=== PATIENT | male | born 1945 | race Caucasian/White ===

== ENCOUNTER 2020-01-21 08:58 | Outpatient (REF) | payer MEDICARE, SELFPAY | END 2020-01-21 08:59 | disposition home or self-care (01) | LOC: HO.HMGCLDS 08:58 | PROVIDERS: PCP Internal Medicine; Visit Provider Internal Medicine | DX: Z20.828 Contact with and (suspected) exposure to other viral communicable diseases (principal) | CPT/HCPCS: C9803; U0003 ==

== ENCOUNTER 2020-09-02 06:42 | Outpatient (REF) | payer MEDICARE, SELFPAY ==
[2020-09-02 12:02] LABS: Hematocrit 46.8 % (42-52); Hemoglobin 15.5 g/dl (14.0-18.0); Mean Corpuscular HGB Conc 33.1 g/dl (31.0-36.0); Mean Corpuscular Hemoglobin 29.9 pg (27.0-33.0); Mean Corpuscular Volume 90.2 fL (80-98); Mean Platelet Volume 8.9 fL (9.4-12.4); Platelet Count 224 X10*3/uL (160-400); Red Blood Count 5.19 X10*6/uL (4.60-5.80); Red Cell Distribution Width 13.2 % (11.0-16.0); White Blood Count 7.7 X10*3/uL (4.8-10.8)
[2020-09-02 12:13] LABS: Alanine Aminotransferase 14 U/L (0-40); Albumin Level 4.2 g/dL (3.5-5.0); Alkaline Phosphatase 73 U/L (39-117); Anion Gap 12 (12-20); Aspartate Amino Transferase 12 U/L (5-37); Blood Urea Nitrogen 12 mg/dL (9-16); Calcium 8.9 mg/dL (8.4-10.2); Carbon Dioxide 24 mmol/L (22-29); Chloride 110 mmol/L (96-108); Cholesterol 151 mg/dL; Estimated Glomerular Filt Rate > 60; Glucose Fasting 94 mg/dL (60-99); HDL Cholesterol 44 mg/dL; LDL Cholesterol Calculated 93 mg/dl; Potassium 4.4 mmol/L (3.3-5.1); Sodium 142 mmol/L (135-145); Triglycerides 70 mg/dL
[2020-09-02 12:24] LABS: Prostate Specific Antigen Scr 0.49 ng/mL (<0.05-4.0)
== END 2020-09-02 06:43 | disposition home or self-care (01) ==
LOC: HO.HMGCLDS 06:42
PROVIDERS: PCP Internal Medicine; Visit Provider Internal Medicine
DX: R41.3 Other amnesia (principal); E78.5 Hyperlipidemia, unspecified
CPT/HCPCS: 36415; 80053; 80061; 84153; 85027

== ENCOUNTER 2021-08-16 06:45 | Outpatient (REF) | payer MEDICARE, SELFPAY ==
[2021-08-16 12:00] LABS: Hematocrit 48.1 % (42.0-52.0); Hemoglobin 15.9 g/dl (14.0-18.0); Mean Corpuscular HGB Conc 33.1 g/dl (31.0-36.0); Mean Corpuscular Hemoglobin 30.1 pg (27.0-33.0); Mean Corpuscular Volume 90.9 fL (80.0-98.0); Platelet Count 199 X10*3/uL (160-400); Red Blood Count 5.29 X10*6/uL (4.60-5.80); Red Cell Distribution Width 13.2 % (11.0-16.0); White Blood Count 7.9 X10*3/uL (4.8-10.8)
[2021-08-16 12:10] LABS: Alanine Aminotransferase 16 U/L (0-40); Albumin Level 4.1 g/dL (3.5-5.0); Alkaline Phosphatase 72 U/L (39-117); Anion Gap 13 (12-20); Aspartate Amino Transferase 12 U/L (5-37); Bilirubin Total 0.6 mg/dL (0.0-1.0); Blood Urea Nitrogen 15 mg/dL (9-16); Calcium 9.1 mg/dL (8.4-10.2); Carbon Dioxide 26 mmol/L (22-29); Chloride 107 mmol/L (96-108); Cholesterol 142 mg/dL; Estimated Glomerular Filt Rate > 60; Glucose Fasting 100 mg/dL (60-99); HDL Cholesterol 48 mg/dL; LDL Cholesterol Calculated 82 mg/dl; Potassium 4.5 mmol/L (3.3-5.1); Sodium 141 mmol/L (135-145); Total Protein 6.8 g/dL (6.5-8.0); Triglycerides 61 mg/dL
== END 2021-08-16 06:46 | disposition home or self-care (01) ==
LOC: HO.HMGCLDS 06:45
PROVIDERS: Visit Provider Internal Medicine
DX: Z12.5 Encounter for screening for malignant neoplasm of prostate (principal); R41.3 Other amnesia; N40.0 Benign prostatic hyperplasia without lower urinary tract symptoms; E78.5 Hyperlipidemia, unspecified
CPT/HCPCS: 36415; 80053; 80061; 84153; 85027

== ENCOUNTER 2022-03-31 10:28 | Outpatient (REF) | payer MEDICARE, SELFPAY ==
--- NOTE | ~2022-03-31 | US_ITS ---
EXAMINATION: US PELVIS LIMITED (BLADDER) CLINICAL INFORMATION: Benign prostatic hyperplasia without lower urinary tract symptoms. COMPARISON: None TECHNIQUE: Real-time imaging of the bladder. FINDINGS: BLADDER: Well distended and normal. Bilateral ureteral jets are demonstrated. Prevoid bladder volume is 219 mL. Postvoid bladder volume is 23 mL. OTHER: Prostate dimensions are 4.5 x 3.6 x 5.2 cm (volume 43.1 mL). US/US bladder IMPRESSION: 1. Unremarkable bilateral renal ultrasound examination. 2. There is prostatomegaly.
[2022-03-31 14:05] LABS: MANUAL DIFF FLAG NO
[2022-03-31 14:11] LABS: Basophils Percent Auto 0.4 % (0-2); Eosinophils Absolute Auto 0.2 X10*3/uL (0.0-0.4); Eosinophils Percent Auto 2.5 % (0-4); Hematocrit 46.9 % (42.0-52.0); Hemoglobin 15.6 g/dl (14.0-18.0); Imm Gran Abs Auto 0.03 X10*3/uL (0.00-0.03); Imm Gran Pct Auto 0.4 % (0.0-0.4); Lymphocytes Absolute Auto 2.1 X10*3/uL (1.2-4.9); Lymphocytes Percent Auto 26.4 % (20-40); Mean Corpuscular HGB Conc 33.3 g/dl (31.0-36.0); Mean Corpuscular Hemoglobin 29.5 pg (27.0-33.0); Mean Corpuscular Volume 88.8 fL (80.0-98.0); Mean Platelet Volume 8.9 fL (9.4-12.4); Monocytes Absolute Auto 0.6 X10*3/uL (0.1-1.2); Monocytes Percent Auto 7.4 % (2-11); Neutrophils Percent Auto 62.9 % (45-73); Platelet Count 201 X10*3/uL (160-400); Red Blood Count 5.28 X10*6/uL (4.60-5.80); Red Cell Distribution Width 13.2 % (11.0-16.0); White Blood Count 7.9 X10*3/uL (4.8-10.8)
[2022-03-31 14:53] LABS: Alanine Aminotransferase 16 U/L (0-40); Albumin Level 4.2 g/dL (3.5-5.0); Alkaline Phosphatase 72 U/L (39-117); Anion Gap 12 (12-20); Aspartate Amino Transferase 15 U/L (5-37); Blood Urea Nitrogen 12 mg/dL (9-16); Calcium 9.2 mg/dL (8.4-10.2); Carbon Dioxide 28 mmol/L (22-29); Chloride 106 mmol/L (96-108); Estimated Glomerular Filt Rate > 60; Glucose Random 103 mg/dL (60-115); Potassium 4.6 mmol/L (3.3-5.1); Sodium 141 mmol/L (135-145); Total Protein 6.9 g/dL (6.5-8.0)
== END 2022-03-31 10:29 | disposition home or self-care (01) ==
LOC: HO.HMGCX 10:28
PROVIDERS: Absent Provider Physician Assistant; PCP Internal Medicine; Visit Provider Internal Medicine
DX: N40.0 Benign prostatic hyperplasia without lower urinary tract symptoms (principal); R42 Dizziness and giddiness
CPT/HCPCS: 36415; 76857; 80053; 85025

== ENCOUNTER 2022-06-20 12:37 | Outpatient (REF) | payer MEDICARE, SELFPAY ==
[2022-06-20 13:40] LABS: Influenza A PCR NEGATIVE (Negative); Influenza B PCR NEGATIVE (Negative); Resp Syncy Virus RNA Qual PCR NEGATIVE (Negative); SARS COV2 PCR INHOUSE NEGATIVE (Negative)
== END 2022-06-20 12:38 | disposition home or self-care (01) ==
LOC: HO.LNP 12:37
PROVIDERS: Visit Provider Nurse Practitioner Family
DX: Z20.822 Contact with and (suspected) exposure to COVID-19 (principal); R09.89 Other specified symptoms and signs involving the circulatory and respiratory systems
CPT/HCPCS: 0241U

== ENCOUNTER 2022-07-12 08:26 | Emergency (ER) | payer MEDICARE, SELFPAY ==
--- NOTE | ~2022-07-12 | CT_ITS ---
EXAMINATION: CT HEAD WITHOUT CONTRAST CLINICAL INFORMATION: Dizziness COMPARISON: None available. TECHNIQUE: Contiguous axial imaging was performed from the skull base to vertex without intravenous administration of contrast. This CT examination was performed using dose optimization techniques as appropriate, variously including the following: *Automated exposure control *Adjustment of mA and/or kV according to patient size (this includes techniques or standardized protocols for targeted exams where dose is matched to indication/reason for exam; i.e. extremities or head) *Use of iterative reconstruction technique DLP: 731 mGy-cm FINDINGS: No intracranial hemorrhage is identified. No significant mass effect or midline structure shift is seen. No abnormal extra-axial fluid collection is noted. There is prominence of ventricles, sulci, and cisterns with some periventricular white matter low density consistent with microangiopathy with atrophic change. García-white metatarsal interface maintained. The visualized paranasal sinuses, mastoid air cells, and temporomandibular joints appear unremarkable. Pterygoid plates intact. CT/CT head/brain wo IV con IMPRESSION: No acute intracranial pathology. 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
[2022-07-12 08:34] VITALS: BP 120/60; PULSE 54; RESP 18; TEMP 36.1; O2SAT 99; BMI 35.6
--- NOTE | 2022-07-12 08:46 | ECG_ITS ---
Test Reason : DIZZINESS Blood Pressure : / mmHG Vent. Rate : 058 BPM Atrial Rate : 058 BPM P-R Int : 164 ms QRS Dur : 088 ms QT Int : 434 ms P-R-T Axes : 006 -16 016 degrees QTc Int : 426 ms Sinus bradycardia with Premature atrial complexes Low voltage QRS Nonspecific T wave abnormality Abnormal ECG When compared with ECG of 10-AUG-2006 11:44, Premature atrial complexes are now Present Referred By: Nikki Teague Electronically Signed By:SALEEM CLARK
--- NOTE | 2022-07-12 09:15 | ED_ITS ---
HPI - General Adult General Chief complaint: Dizziness Stated complaint: Vertigo Time Seen by Provider: 07/12/22 09:14 Source: patient and family () Mode of arrival: ambulatory Limitations: no limitations History of Present Illness HPI narrative: Patient is a 77 year old assigned male at with a history of vertigo, memory loss, and BPH presenting to the emergency department today with an episode of vertigo. Patient states that he is currently having a prolonged episode of vertigo and he is almost out of his antivert. Patient states that he previously had a PT do the maneuver to help with it before and that did make it go away for awhile. Patient denies any lightheadedness, abdominal pain, nausea, vomiting, fever, chills, blurry vision, double vision, loss of vision, chest pain, difficulty breathing, shortness of breath, back pain, night sweats, pain with urination, increased urinary frequency, increased urinary urgency, blood in his urine or stool, syncope or a near syncopal episode, recent trauma or falls, bowel incontinence, bladder incontinence, bowel retention, bladder retention, or any other complaints at this time. Onset (ago): week(s) Severity: mild Relieving factors: none Exacerbating factors: none Associated symptoms: denies other symptoms Treatments prior to arrival: none Related Data Home Medications Medication Instructions Recorded Confirmed flu vacc 2020-21(65yr ml IM 02/25/20 06/20/22 up)-MF59C(PF) 60 mcg(15 mcgx4)/0.5 mL IM syringe Previous Rx's Medication Instructions Recorded donepezil 10 mg tablet 10 mg PO BEDTIME #90 tabs 09/26/21 simvastatin 40 mg tablet 40 mg PO DAILY #90 tabs 03/03/22 meclizine 25 mg tablet 25 mg PO BID PRN dizziness #14 tabs 03/31/22 albuterol sulfate 90 mcg/actuation 2 puff inhalation Q4-6H PRN 06/20/22 aerosol inhaler shortness of breath or wheezing #6.7 grams benzonatate 100 mg capsule 100 mg PO TID PRN cough #20 caps 06/20/22 cetirizine 10 mg tablet 10 mg PO DAILY PRN allergy 06/20/22 symptoms #30 tabs doxycycline monohydrate 100 mg 100 mg PO BID 7 days #14 caps 06/20/22 capsule meclizine 25 mg tablet 25 mg PO BID PRN dizziness #30 tabs 07/12/22 Allergies Allergy/AdvReac Type Severity Reaction Status Date / Time No Known Allergies Allergy Verified 07/12/22 08:42 Review of Systems Constitutional: Constitutional: Reports no additional constitutional complaints, Denies headache(s) and Denies weakness Eyes: Eyes: Denies blurry vision, Denies change in vision and Denies loss of vision ENT: Reports vertigo, Reports dizziness and Denies headache(s) Cardiovascular: Cardiovascular: Denies chest pain and Denies dyspnea Respiratory: Respiratory: Denies dyspnea Gastrointestinal: Gastrointestinal: Denies abdominal pain Genitourinary: Genitourinary: Denies no additional male genitourinary complaints Musculoskeletal: Musculoskeletal: Denies no additional musculoskeletal complaints and Denies abnormal gait Neurologic: Denies Abnormal speech present, Denies abnormal gait, Reports vertigo, Reports dizziness, Denies headache(s), Denies lack of coordination, Denies loss of vision, Denies Sensory deficit (Neuro) and Denies weakness Psychiatric: Psychiatric: Reports no additional psychiatric complaints Endocrine: Endocrine: Reports no additional endocrine complaints Hematologic/Lymphatic: Hematologic/Lymphatic: Reports no additional hematologic/lymphatic complaints Allergic/Immunologic: Allergic/Immunologic: Reports no additional allergic/immunologic complaints PMFSH Past Medical History Attestation statement: The following information was validated with the patient. (all information validated with the patient's mother) Source: old records reviewed, obtained from family (patient's ) and nursing notes reviewed Medical History BPH (benign prostatic hyperplasia) Cataract Hyperlipidemia Memory loss Obesity Surgical History H/O colonoscopy Family History Family History Father HTN (hypertension) Mother No problems noted. Maternal Grandfather Cancer Maternal Grandmother Lung cancer Sister No problems noted. Son No problems noted. Daughter No problems noted. Daughter No problems noted. Daughter No problems noted. Social History Social History Housing: House Alcohol intake: current Alcohol intake frequency: a few times a week Patient Tobacco Use Status: Never used Tobacco e-Cigarette/Vaping Use: Never Used Second Hand Smoke Exposure: No Advance Directives: No Advance Directives Information Provided: Yes service: Yes Current occupational status: retired Cognitive needs: No Hearing needs: Yes Vision needs: Yes Physical Exam ED Vital Signs: Vital Signs - 24 hr 07/12/22 08:34 Temperature 96.9 F Pulse Rate 54 Respiratory Rate 18 Blood Pressure 120/60 Pulse Oximetry 99 Oxygen Delivery Method Room Air BMI result Body Mass Index 35.6 Const General: cooperative Nutritional Appearance: well nourished Orientation/consciousness: patient oriented x3 Limitations: no limitations HENMT Head: Yes normal to inspection and Yes atraumatic Ears: hearing grossly normal bilaterally and external ears normal General nose exam: Normal external nose present, no nasal discharge noted and no epistaxis Face and sinus: Yes normal facial exam, No abrasion and No laceration Mouth: Normal oral and palatal mucosa present, no drooling and no muffled voice Eyes General: appearance normal, both eyes and all related structures Periorbital: periorbital findings normal Eyelids: Yes eyelids normal Conjunctivae: conjunctivae normal Pupils: Equal, round and reactive pupils present EOM: EOMs intact bilaterally Neck Neck: Yes normal visual inspection, Yes full ROM and Yes no lymphadenopathy Chest Chest palpation & inspection: normal inspection of the chest Resp Effort & Inspection: normal respiratory effort and able to speak in complete sentences Auscultation: clear to auscultation bilaterally Cardio Rate: regular rate Rhythm: regular rhythm GI Inspection: Yes normal to inspection Palpation (GI): Soft to palpation, not firm and nontender Auscultation: normal bowel sounds Neuro General: patient oriented x3 Cranial nerves: Yes CN's II-XII intact bilaterally and Yes Equal, round and reactive pupils present Cognition (Neuro): normal cognition Speech: No Abnormal speech present Gait exam (Neuro): Normal gait present Motor exam (neuro): 5/5 motor strength present throughout Sensory Exam: No Sensory deficit (Neuro), Upper extremity sensory exam abnormal or Abnormal lower extremity sensory exam Coordination: [id number] test normal Extrem General: Yes normal to inspection, Yes full ROM and Yes capillary refill normal Psych Appearance: grossly normal Mental Status: mental status grossly normal Affect: normal affect Attitude: cooperative Thought process: Normal thought process present Thought content: Normal thought content present Insight: Good insight present (Psych) Medical Decision Making Medical Decision Making MDM Narrative: Patient is a 77 year old assigned male at with a history of memory loss, vertigo, and cataracts presenting to the emergency department today with a prolonged episode of vertigo. Patient's physical exam was unremarkable including normal gait, a normal neurological examination, and an NIH score of 0. Patient's blood work was unremarkable. Patient's urine showed no acute process. Patient's EKG was unremarkable. Patient's head CT showed no acute process. I explained my physical exam findings as well as all test results to the patient and the patient's . I answered all questions asked by the patient and the patient's . I stressed the importance of the patient taking his medication as prescribed. I stressed the importance of the patient following up with his primary care provider. I stressed the importance of the patient returning to the emergency department immediately if his symptoms were to worsen or if he were to develop any dizziness, shortness of breath, difficulty breathing, chest pain, blurry vision, loss of vision, nausea, vomiting, abdominal pain, fever, chills, back pain, or any other complaints. Patient and the patient's verbalized agreement and understanding with this treatment plan and discharge. Differential Diagnosis Differential Diagnoses: The differential diagnosis associated with the presentation includes vertigo Lab Data MDM Lab Attestation statement: I reviewed the patient's lab results. 07/12/22 09:52 07/12/22 09:52 Labs: Lab Results 07/12/22 07/12/22 07/12/22 Range/Units 09:49 09:52 09:52 WBC 6.9 (4.8-10.8) X10*3/uL RBC 5.08 (4.60-5.80) X10*6/uL Hgb 15.1 (14.0-18.0) g/dl Hct 45.0 (42.0-52.0) % MCV 88.6 (80.0-98.0) fL MCH 29.7 (27.0-33.0) pg MCHC 33.6 (31.0-36.0) g/dl RDW 13.2 (11.0-16.0) % Plt Count 168 (160-400) X10*3/uL MPV 8.5 L (9.4-12.4) fL Immature Gran % (Auto) 0.1 (0.0-0.4) % Neut % (Auto) 67.5 (45-73) % Lymph % (Auto) 22.9 (20-40) % [place] % (Auto) 6.3 (2-11) % Eos % (Auto) 2.9 (0-4) % Baso % (Auto) 0.3 (0-2) % Lymph # (Auto) 1.6 (1.2-4.9) X10*3/uL [place] # (Auto) 0.4 (0.1-1.2) X10*3/uL Eos # (Auto) 0.2 (0.0-0.4) X10*3/uL Baso # (Auto) 0.0 (0.0-0.2) X10*3/uL Abs Immat Gran (auto) 0.01 (0.00-0.03) X10*3/uL Absolute Neuts (auto) 4.6 (2.0-8.3) x10*3/uL Absolute Nucleated RBC 0.000 (0.0-0.012) X10*3/uL Nucleated RBC % (auto) 0.0 (0.0-0.2) /100WBC Sodium 141 (135-145) mmol/L Potassium 4.4 (3.3-5.1) mmol/L Chloride 110 H (96-108) mmol/L Carbon Dioxide 26 (22-29) mmol/L Anion Gap 9 L (12-20) BUN 11 (9-16) mg/dL Creatinine 0.97 (0.5-1.4) mg/dL Estim Creat Clear Calc 81.1 Estimated GFR > 60 Random Glucose 108 (60-115) mg/dL Calcium 8.9 (8.4-10.2) mg/dL Magnesium 2.1 (1.6-2.6) mg/dL Total Bilirubin 1.1 H (0.0-1.0) mg/dL AST 14 (5-37) U/L ALT 14 (0-40) U/L Alkaline Phosphatase 70 (39-117) U/L Troponin I High Sens (<3.5-35.0) ng/L Total Protein 6.3 L (6.5-8.0) g/dL Albumin 3.8 (3.5-5.0) g/dL Urine Color Urine Appearance Urine pH (5.0-9.0) Ur Specific [place] (1.005-1.025) Urine Protein (Neg-Trace) mg/dL Urine Glucose (UA) (Negative) mg/dL Urine Ketones (Negative) mg/dL Urine Blood (Negative) Urine Nitrite (Negative) Ur Leukocyte Esterase (Negative) COVID-19 ([place]) Negative (Negative) COVID-19 Clin Com See Note 07/12/22 07/12/22 Range/Units 09:52 11:21 WBC (4.8-10.8) X10*3/uL RBC (4.60-5.80) X10*6/uL Hgb (14.0-18.0) g/dl Hct (42.0-52.0) % MCV (80.0-98.0) fL MCH (27.0-33.0) pg MCHC (31.0-36.0) g/dl RDW (11.0-16.0) % Plt Count (160-400) X10*3/uL MPV (9.4-12.4) fL Immature Gran % (Auto) (0.0-0.4) % Neut % (Auto) (45-73) % Lymph % (Auto) (20-40) % [place] % (Auto) (2-11) % Eos % (Auto) (0-4) % Baso % (Auto) (0-2) % Lymph # (Auto) (1.2-4.9) X10*3/uL [place] # (Auto) (0.1-1.2) X10*3/uL Eos # (Auto) (0.0-0.4) X10*3/uL Baso # (Auto) (0.0-0.2) X10*3/uL Abs Immat Gran (auto) (0.00-0.03) X10*3/uL Absolute Neuts (auto) (2.0-8.3) x10*3/uL Absolute Nucleated RBC (0.0-0.012) X10*3/uL Nucleated RBC % (auto) (0.0-0.2) /100WBC Sodium (135-145) mmol/L Potassium (3.3-5.1) mmol/L Chloride (96-108) mmol/L Carbon Dioxide (22-29) mmol/L Anion Gap (12-20) BUN (9-16) mg/dL Creatinine (0.5-1.4) mg/dL Estim Creat Clear Calc Estimated GFR Random Glucose (60-115) mg/dL Calcium (8.4-10.2) mg/dL Magnesium (1.6-2.6) mg/dL Total Bilirubin (0.0-1.0) mg/dL AST (5-37) U/L ALT (0-40) U/L Alkaline Phosphatase (39-117) U/L Troponin I High Sens < 2.7 (<3.5-35.0) ng/L Total Protein (6.5-8.0) g/dL Albumin (3.5-5.0) g/dL Urine Color Yellow Urine Appearance Clear Urine pH 6.0 (5.0-9.0) Ur Specific [place] 1.010 (1.005-1.025) Urine Protein Negative (Neg-Trace) mg/dL Urine Glucose (UA) Negative (Negative) mg/dL Urine Ketones Negative (Negative) mg/dL Urine Blood Negative (Negative) Urine Nitrite Negative (Negative) Ur Leukocyte Esterase Negative (Negative) COVID-19 ([facility]) (Negative) COVID-19 Clin Com Independent Interpretation I performed an independent interpretation of an: EKG and CT Scan Interpretation: Vent. Rate: 058 BPM ? ? Atrial Rate: 058 BPM P-R Int: 164 ms? QRS Dur: 088 ms QT Int: 434 ms ? ? ? P-R-T Axes: 006 -16 016 degrees QTc Int: 426 ms ? Sinus bradycardia with Premature atrial complexes Low voltage QRS Nonspecific T wave abnormality Abnormal ECG When compared with ECG of 10-AUG-2006 11:44, Premature atrial complexes are now Present DD/ [id number] My interpretation is in agreement with the radiologist's impression of this imaging study. EXAMINATION: CT HEAD WITHOUT CONTRAST CLINICAL INFORMATION: Dizziness? COMPARISON: None available. TECHNIQUE: Contiguous axial imaging was performed from the skull base to vertex without intravenous administration of contrast. This CT examination was performed using dose optimization techniques as appropriate, variously including the following: *Automated exposure control *Adjustment of mA and/or kV according to patient size (this includes techniques or standardized protocols for targeted exams where dose is matched to indication/reason for exam; i.e. extremities or head) *Use of iterative reconstruction technique DLP: 731 mGy-cm FINDINGS: No intracranial hemorrhage is identified. No significant mass effect or midline structure shift is seen. No abnormal extra-axial fluid collection is noted. There is prominence of ventricles, sulci, and cisterns with some periventricular white matter low density consistent with microangiopathy with atrophic change. García-white metatarsal interface maintained. The visualized paranasal sinuses, mastoid air cells, and temporomandibular joints appear unremarkable. Pterygoid plates intact. CT/CT head/brain wo IV con IMPRESSION: No acute intracranial pathology. ? 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 Dictated By: Dung Shelton MD Signed By: Electronically signed by Dung Shelton MD 07/12/22 0955 Independent Historian Clinical information obtained from an independent historian. History obtained from or confirmed by: Spouse Discharge Plan Discharge Clinical Impression: Vertigo Patient Disposition: Home, Self-Care Instructions: Vertigo (DC) Additional Instructions: Follow up with your primary care provider and be sure to ask about a physical therapy referral. Return to the emergency department immediately if your symptoms worsen or if you develop any dizziness, shortness of breath, difficulty breathing, chest pain, blurry vision, loss of vision, nausea, vomiting, abdominal pain, fever, chills, back pain, or any other complaints. Prescriptions: New meclizine 25 mg tablet 25 mg PO BID PRN (Reason: dizziness) Qty: 30 0RF No Action donepezil 10 mg tablet 10 mg PO BEDTIME Qty: 90 3RF simvastatin 40 mg tablet 40 mg PO DAILY Qty: 90 3RF Fluad Quad 21(65y up)(PF) 60 mcg (15 mcg x 4)/0.5 mL syringe IM albuterol sulfate 90 mcg/actuation HFA aerosol inhaler 2 puff inhalation Q4-6H PRN (Reason: shortness of breath or wheezing) Qty: 6.7 0RF Rx Instructions: May dispense medication equivalent accepted by patient's insurance benzonatate 100 mg capsule 100 mg PO TID PRN (Reason: cough) Qty: 20 0RF doxycycline monohydrate 100 mg capsule 100 mg PO BID 7 Days Qty: 14 0RF cetirizine 10 mg tablet 10 mg PO DAILY PRN (Reason: allergy symptoms) Qty: 30 6RF meclizine 25 mg tablet 25 mg PO BID PRN (Reason: dizziness) Qty: 14 0RF Referrals: Alivia Horner MD [Primary Care Provider] - Interventions: ED Discharge Assessment Last Done: 07/12/22 12:06 Discharge Date/Time: 07/12/22 12:08 Print Language: Urdu
[2022-07-12 09:57] LABS: MANUAL DIFF FLAG NO
[2022-07-12 09:58] LABS: Basophils Percent Auto 0.3 % (0-2); Eosinophils Absolute Auto 0.2 X10*3/uL (0.0-0.4); Eosinophils Percent Auto 2.9 % (0-4); Hemoglobin 15.1 g/dl (14.0-18.0); Imm Gran Abs Auto 0.01 X10*3/uL (0.00-0.03); Imm Gran Pct Auto 0.1 % (0.0-0.4); Lymphocytes Absolute Auto 1.6 X10*3/uL (1.2-4.9); Lymphocytes Percent Auto 22.9 % (20-40); Mean Corpuscular HGB Conc 33.6 g/dl (31.0-36.0); Mean Corpuscular Hemoglobin 29.7 pg (27.0-33.0); Mean Corpuscular Volume 88.6 fL (80.0-98.0); Mean Platelet Volume 8.5 fL (9.4-12.4); Monocytes Absolute Auto 0.4 X10*3/uL (0.1-1.2); Monocytes Percent Auto 6.3 % (2-11); Neutrophils Absolute Auto 4.6 x10*3/uL (2.0-8.3); Neutrophils Percent Auto 67.5 % (45-73); Platelet Count 168 X10*3/uL (160-400); Red Blood Count 5.08 X10*6/uL (4.60-5.80); Red Cell Distribution Width 13.2 % (11.0-16.0); White Blood Count 6.9 X10*3/uL (4.8-10.8)
[2022-07-12 10:20] LABS: Alanine Aminotransferase 14 U/L (0-40); Albumin Level 3.8 g/dL (3.5-5.0); Alkaline Phosphatase 70 U/L (39-117); Anion Gap 9 (12-20); Aspartate Amino Transferase 14 U/L (5-37); Bilirubin Total 1.1 mg/dL (0.0-1.0); Blood Urea Nitrogen 11 mg/dL (9-16); Calcium 8.9 mg/dL (8.4-10.2); Carbon Dioxide 26 mmol/L (22-29); Chloride 110 mmol/L (96-108); Creatinine Clr Calc Pharmacy 81.1; Estimated Glomerular Filt Rate > 60; Glucose Random 108 mg/dL (60-115); Magnesium 2.1 mg/dL (1.6-2.6); Potassium 4.4 mmol/L (3.3-5.1); Sodium 141 mmol/L (135-145); Total Protein 6.3 g/dL (6.5-8.0)
[2022-07-12 10:20] LABS: COVID-19 Test Negative (Negative); IDNOW Serial# 9DB6401D
[2022-07-12 10:25] LABS: Troponin-I High Sensitivity < 2.7 ng/L (<3.5-35.0)
[2022-07-12 11:35] LABS: Appearance Urine Clear; Color Urine Yellow; Glucose Urine UA Negative (Negative); Leukocyte Esterase Urine Negative (Negative); Nitrite Urine Negative (Negative); Urine Blood Negative (Negative); Urine Ketones Negative (Negative); Urine Protein Negative (Neg-Trace)
== END 2022-07-12 12:08 | disposition home or self-care (01) ==
PROVIDERS: Physician Assistant Medical; Emergency Provider Emergency Medicine Emergency Medical Services; PCP Internal Medicine
DX: R42 Dizziness and giddiness (principal); E78.5 Hyperlipidemia, unspecified; Z79.02 Long term (current) use of antithrombotics/antiplatelets; Z79.899 Other long term (current) drug therapy; Z20.822 Contact with and (suspected) exposure to COVID-19
CPT/HCPCS: 70450; 80053; 81003; 83735; 84484; 85025; 87635; 93005; 99283; 99284

== ENCOUNTER 2022-09-04 06:48 | Outpatient (REF) | payer MEDICARE, SELFPAY | END 2022-09-04 06:49 | disposition home or self-care (01) | LOC: HO.HMGCLDS 06:48 | PROVIDERS: PCP Internal Medicine; Visit Provider Internal Medicine | DX: E55.9 Vitamin D deficiency, unspecified (principal); R41.3 Other amnesia; N40.0 Benign prostatic hyperplasia without lower urinary tract symptoms; E66.9 Obesity, unspecified; E78.5 Hyperlipidemia, unspecified; Z12.5 Encounter for screening for malignant neoplasm of prostate | CPT/HCPCS: 36415; 80053; 80061; 82306; 82607; 82746; 84153; 85025 ==

== ENCOUNTER 2022-09-22 10:02 | Outpatient (AMB) | payer MEDICARE, SELFPAY ==
[2022-09-22 10:05] VITALS: BP 120/74; PULSE 60; O2SAT 98; BMI 36.2
--- NOTE | 2022-09-22 10:05 | A.OFFPC_ITS ---
Vital Signs 09/22/22 10:05 Height 5 ft 11 in Weight 259 lb 6 oz BMI 36.2 BP 120/74 Blood Pressure Location Lt brachial Position Sitting Pulse 60 Pulse Source Pulse Oximeter Pulse Oximetry (%) 98 Oxygen Delivery Method Room Air Intake Visit Reasons: 6 month follow up Intake Note: Pt is here today for 6 months follow up. Allergies No Known Allergies Allergy (Verified 09/22/22 10:07) Medication List - Last Reconciled 09/22/22 by Alivia Horner MD albuterol sulfate 90 mcg/actuation 2 puffs inhalation Q4-6H PRN benzonatate 100 mg PO TID PRN cetirizine 10 mg PO DAILY PRN donepezil 10 mg PO BEDTIME doxycycline monohydrate 100 mg PO BID 7 days flu vac 2020 [id number](PF) 60 mcg (15 mcg x 4)/0.5 mL mL IM meclizine 25 mg PO BID PRN meclizine 25 mg PO BID PRN simvastatin 40 mg PO DAILY Tobacco use date assessed: 09/22/22 Fall risk assessment: No Falls in past year Last assessed Fall Risk: 09/22/22 Dental Screening Dental Screen Date: 09/22/22 Did you have a dental visit in the last 12 months?: No Did you have a dental problem in the last 6 months where you did not have access to dental care?: No Was dental information given to patient?: Patient declined HPI 6 month follow up HPI Details Pt presents for hyperlipid and BPH, stable on meds. Patient's is concerned about his declining memory. He is not physically active spent most of he stays in front of TV. Patient denies daytime somnolence or sleep apnea. [facility] Medical History BPH (benign prostatic hyperplasia) Cataract Hyperlipidemia Memory loss Obesity Surgical History H/O colonoscopy Family History Father HTN (hypertension) Mother No problems noted. Maternal Grandfather Cancer Maternal Grandmother Lung cancer Sister No problems noted. Son No problems noted. Daughter No problems noted. Daughter No problems noted. Daughter No problems noted. Social History Housing: House Alcohol intake: current Alcohol intake frequency: a few times a week Patient Tobacco Use Status: Never used Tobacco e-Cigarette/Vaping Use: Never Used Second Hand Smoke Exposure: No service: Yes Current occupational status: retired Cognitive needs: No Hearing needs: Yes Vision needs: Yes Questionnaire Thrive Questionnaire Date Thrive assessed: 03/24/22 AUDIT C Alcohol Use Questionnaire (AUDIT-C) 1. How often do you have a drink containing alcohol?: Monthly or less 2. How many drinks containing alcohol do you have on a typical day when you are drinking?: 1 or 2 3. How often do you have six or more drinks on one occasion?: Never Total Score: 1 AJAY-7 AMB Questionnaire AJAY-7 Date AJAY - 7 assessed: 03/24/22 Source: Developed by Drs. Riley Valadez, Arlen Helton, Benigno Antonio and colleagues, with an educational marianna from [employer]. Physical exam (Primary Care) Vital Signs: Last Vital Signs Pulse 60 09/22/22 10:05 BP 120/74 09/22/22 10:05 Pulse Ox 98 09/22/22 10:05 Oxygen Delivery Method Room Air 09/22/22 10:05 BMI result Body Mass Index 36.2 Tobacco/Smoking Status: Tobacco use Status Tobacco use date assessed 09/22/22 09/22/22 10:16 Patient Tobacco Use Status Never used Tobacco 09/22/22 10:05 e-Cigarette/Vaping Use Never Used 09/22/22 10:05 Thrive Assessment: Date of Thrive Assessment Date Thrive assessed 03/24/22 09/22/22 10:05 Const General: no acute distress HENMT Head: Yes normal to inspection General nose exam: Normal external nose present Neck Neck: Yes no lymphadenopathy Resp Effort & Inspection: normal respiratory effort Auscultation: clear to auscultation bilaterally Cardio Rhythm: regular rhythm Heart sounds: S1 normal heart sound present and S2 normal heart sound present GI Inspection: Yes normal to inspection Assessment and Plan Assessment & Plan (1) Lower back pain: Comment: chronic Code(s): M54.50 - Low back pain, unspecified Plan: Referred to physical therapy (2) Impaired memory: Code(s): R41.3 - Other amnesia Plan: Referred to neurologist, patient was advised to increase physical activity and memory stimulating activities and social interaction (3) Hyperlipidemia: Code(s): E78.5 - Hyperlipidemia, unspecified Plan: Continue statin follow-up in 6 months Orders: Orders PT Evaluation and Treatment Today M54.50 - Low back pain, unspecified Comprehensive [place]. Panel Fast 6 Months E78.5 - Hyperlipidemia, unspecified, M54.50 - Low back pain, unspecified Complete Blood Count Auto Diff 6 Months E78.5 - Hyperlipidemia, unspecified, M54.50 - Low back pain, unspecified Hemoglobin A1c 6 Months E78.5 - Hyperlipidemia, unspecified, M54.50 - Low back pain, unspecified TSH reflex Free T4 6 Months E78.5 - Hyperlipidemia, unspecified, M54.50 - Low back pain, unspecified Referrals Neurology Referral R41.3 - Other amnesia Medications: New tamsulosin 0.4 mg PO DAILY 90 caps 2RF Discontinued doxycycline monohydrate Discontinued Reason: Doctor's Order 100 mg PO BID 7 days 14 caps 0RF meclizine Discontinued Reason: Doctor's Order 25 mg PO BID PRN 14 tabs 0RF dizziness Coding Level of Care Code Est Pt Level 4 (48004) Diagnoses Lower back pain M54.50 Impaired memory R41.3 Hyperlipidemia E78.5
== END 2022-09-22 10:52 | disposition home or self-care (01) ==
PROVIDERS: Visit Provider Internal Medicine
DX: M54.50 Low back pain, unspecified (principal); R41.3 Other amnesia; E78.5 Hyperlipidemia, unspecified
CPT/HCPCS: 99214

== ENCOUNTER 2022-10-05 07:55 | Outpatient (RCR) | payer MEDICARE, SELFPAY ==
--- NOTE | 2022-10-05 09:32 | MHC.PT.EP ---
[facility] [place] Office [place] Office [place] Office [address] [phone] F: [phone] F: [phone] F: [phone] F: [phone] Physical Therapy Plan of Care Date of Evaluation: Date of Surgery: Diagnosis: This is a 77 yo male presenting to skilled PT with a script for low back pain. Assessment: This is a 77 yo male presenting to skilled PT with a script for low back pain. Patient reports on and off again low back pain for many years. Pain is located across low back and is achy but is worse on the R and can range up to the scapular area as well. Pain increases with walking mainly. He denies other aggravating factors. He denies radiating symptoms. Assessment reveals pain that ranges from up to a 3/10 at the worst. Patient demos decreased general trunk and LE ROM, strength of LE's and core, TTP at lower thoracic and high lumbar muscles, impaired endurance and shuffling gait and impaired posture with forward head and rounded shoulders with increased thoracic kyphosis. Based on functional limitations, impaired QOL and pain tolerance patient is a good candidate for skilled PT 2x/wk for 4wks. 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 Manual therapy to restore motion and function. Therapeutic exercise to improve strength and flexibility. Neuromuscular re-education for posture and balance. Therapeutic activities to return to functional activities of daily living. Electronically signed by: Richa Bolden PT Please sign and return to therapist. Thank you for your referral.
--- NOTE | 2022-11-02 10:40 | MHC.PT.DC ---
[facility] [place] Office [place] Office [place] Office [address] Ellen Lassiter [address] [phone] F: [phone] F: [phone] F: [phone] F: [phone] Physical Therapy Discharge Report Diagnosis: This is a 77 yo male presenting to skilled PT with a script for low back pain. Date of Surgery: Date of Evaluation: 10/05/22 Date of Discharge: 11/02/22 Treatments to Date: 1 Cancellations to Date: 0 No Shows to Date: 0 Discharge Status: Patient Elected to Stop Discharge Summary: This is a 77 yo male presenting to skilled PT with a script for low back pain. Patient reports on and off again low back pain for many years. Pain is located across low back and is achy but is worse on the R and can range up to the scapular area as well. Pain increases with walking mainly. He denies other aggravating factors. He denies radiating symptoms. Assessment reveals pain that ranges from up to a 3/10 at the worst. Patient demos decreased general trunk and LE ROM, strength of LE's and core, TTP at lower thoracic and high lumbar muscles, impaired endurance and shuffling gait and impaired posture with forward head and rounded shoulders with increased thoracic kyphosis. Based on functional limitations, impaired QOL and pain tolerance patient is a good candidate for skilled PT 2x/wk for 4wks. Patient returned and reports feeling well with back and will continue HEP on his own. in agreement. He has gotten a new mattress and reports no longer having pain. Electronically signed by: Richa Bolden, PT Please sign and return to therapist. Thank you for your referral.
== END 2022-11-02 10:40 | disposition home or self-care (01) ==
LOC: HO.PTCHIC 07:55
PROVIDERS: PCP Internal Medicine; Visit Provider Internal Medicine
DX: M54.50 Low back pain, unspecified (principal)
CPT/HCPCS: 97110; 97162

== ENCOUNTER 2022-11-02 10:00 | Outpatient (RCR) | payer MEDICARE, SELFPAY ==
[2022-08-02 10:01] VITALS: BP 152/62; PULSE 52; O2SAT 99
--- NOTE | 2022-08-02 12:27 | MHC.PT.EP ---
[facility] [place] Office [place] Office [place] Office [address] Mary Ellen Lassiter [address] [phone] F: [phone] F: [phone] F: [phone] F: [phone] Physical Therapy Plan of Care Date of Evaluation: Date of Surgery: Diagnosis: This is a 77 yo male presenting to skilled PT with a script for vertigo. Assessment: This is a 77 yo male presenting to skilled PT with a script for vertigo. Patient reporting that he had covid in January and once this cleared up he noticed an increase in dizziness. He want in the ED on 07/12 as his symptoms got worse, reports included: patient's blood work was unremarkable, urine showed no acute process, EKG was unremarkable and head CT showed no acute process. He has had PT in the past for vertigo which was helpful. He reports that he has been avoiding sleeping on his R side but otherwise feels ok with most movements and does not notice his symptoms otherwise. Examination shows + oculomotor tests with saccades, (-) VBI B, and grossly decreased cervical AROM. He was (+) for BPPV with jose eduardo-hallpike on the R which when reassessed became + with roll test. I did not have time to reassess again to see if symptoms improved but patient without nystagmus after jesu grey (transferred and ambulated out of room without issues). Balance was ok except for some increased sway which is how he reports he is at baseline and he felt no dizziness symptoms with DGI or [place]. 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 Frequency and Duration: The patient will be seen 2x/wk for 4wks Short Term Goals: reassess canals short term [employer] Custodian Goals: I in HEP Negative in all 6 canals for dizziness and nystagmus Return to normal gait pattern without reports fo LOB due to dizziness Treatment Plan: Modalities to reduce pain, spasms and effusion. Manual therapy to restore motion and function. Therapeutic exercise to improve strength and flexibility. Neuromuscular re-education for posture and balance. Therapeutic activities to return to functional activities of daily living. Electronically signed by: Richa Bolden PT Please sign and return to therapist. Thank you for your referral.
--- NOTE | 2022-09-29 14:48 | MHC.PT.DC ---
[facility] [place] Office [place] Office [place] Office [address] [phone] F: [phone] F: [phone] F: [phone] F: [phone] Physical Therapy Discharge Report Diagnosis: This is a 77 yo male presenting to skilled PT with a script for vertigo. Date of Surgery: Date of Evaluation: 08/02/22 Date of Discharge: 09/29/22 Treatments to Date: 7 Cancellations to Date: 0 No Shows to Date: 0 Discharge Status: Improved Function Recommend MD Follow-up Discharge Summary: Patient had no nystagmus in hallpike today, when I put him in R roll test he had a few torsional up beating nystagmus but when reassessed again, did not. I educated him and his on POC and will hold tx for now unless symptoms return. He understands his need to take his time with transfers. I also educated them both on vitamin D blood work when he goes to PCP in 2 weeks. Educated to call our office if symptoms get worse again. Chart was DC'd after 30 days. Electronically signed by: Richa Bolden PT Please sign and return to therapist. Thank you for your referral.
== END 2023-01-12 08:49 ==
LOC: HO.PTCHIC 10:00
PROVIDERS: PCP Internal Medicine; Visit Provider Internal Medicine
DX: H81.10 Benign paroxysmal vertigo, unspecified ear (principal)
CPT/HCPCS: 95992; 97110; 97162

== ENCOUNTER 2023-03-27 09:58 | Outpatient (AMB) | payer MEDICARE, SELFPAY ==
[2023-03-27 10:06] VITALS: BP 124/74; PULSE 56; O2SAT 98; BMI 36.8
--- NOTE | 2023-03-27 10:06 | MHC.PC.OV ---
Vital Signs 03/27/23 10:06 Height 5 ft 11 in Weight 264 lb BMI 36.8 BP 124/74 Blood Pressure Location Lt brachial Position Sitting Pulse 56 Pulse Source Pulse Oximeter Pulse Oximetry (%) 98 Oxygen Delivery Method Room Air Intake Visit Reasons: 6 month follow up Intake Note: Pt is here today for 6 months follow up visit. Allergies No Known Allergies Allergy (Verified 03/27/23 10:08) Medication List - Last Reconciled 03/27/23 by Alivia Horner MD donepezil 10 mg PO BEDTIME flu vac 2020 [id number](PF) 60 mcg (15 mcg x 4)/0.5 mL mL IM meclizine 25 mg PO BID PRN memantine 10 mg PO BID simvastatin 40 mg PO DAILY tamsulosin 0.4 mg PO DAILY Tobacco use date assessed: 03/27/23 Fall risk assessment: No Falls in past year Last assessed Fall Risk: 03/27/23 Dental Screening Dental Screen Date: 03/27/23 Did you have a dental visit in the last 12 months?: No Did you have a dental problem in the last 6 months where you did not have access to dental care?: No Was dental information given to patient?: Patient declined HPI 6 month follow up HPI Details Pt presents for f/u hyperlipid, dementia, stable on meds. PFSH Medical History BPH (benign prostatic hyperplasia) Cataract Obesity Memory loss Hyperlipidemia Surgical History H/O colonoscopy Family History Father HTN (hypertension) Mother No problems noted. Maternal Grandfather Cancer Maternal Grandmother Lung cancer Sister No problems noted. Son No problems noted. Daughter No problems noted. Daughter No problems noted. Daughter No problems noted. Social History Housing: House Alcohol intake: current Alcohol intake frequency: a few times a week Patient Tobacco Use Status: Never used Tobacco e-Cigarette/Vaping Use: Never Used Second Hand Smoke Exposure: No service: Yes Current occupational status: retired Cognitive needs: No Hearing needs: Yes Vision needs: Yes Questionnaire Thrive Questionnaire Date Thrive assessed: 03/24/22 AUDIT C Alcohol Use Questionnaire (AUDIT-C) 1. How often do you have a drink containing alcohol?: Monthly or less 2. How many drinks containing alcohol do you have on a typical day when you are drinking?: 1 or 2 3. How often do you have six or more drinks on one occasion?: Never Total Score: 1 AJAY-7 AMB Questionnaire AJAY-7 Date AJAY - 7 assessed: 03/24/22 Source: Developed by Drs. Riley Valadez, Arlen Helton, Benigno Antonio and colleagues, with an educational marianna from [employer]. Review of Systems Const All systems reviewed & are unremarkable except as noted in HPI and below Reports no additional complaints Eyes Reports no additional complaints ENT Reports no additional complaints Card Reports no additional complaints Resp Reports no additional complaints GI Reports no additional complaints Reports no additional complaints Physical exam (Primary Care) Vital Signs: Last Vital Signs Pulse 56 03/27/23 10:06 BP 124/74 03/27/23 10:06 Pulse Ox 98 03/27/23 10:06 Oxygen Delivery Method Room Air 03/27/23 10:06 BMI result Body Mass Index 36.8 Tobacco/Smoking Status: Tobacco use Status Tobacco use date assessed 03/27/23 03/27/23 10:12 Patient Tobacco Use Status Never used Tobacco 03/27/23 10:12 e-Cigarette/Vaping Use Never Used 03/27/23 10:12 Thrive Assessment: Date of Thrive Assessment Date Thrive assessed 03/24/22 03/27/23 10:12 Const General: no acute distress HENMT Head: Yes normal to inspection General nose exam: Normal external nose present Mouth: Normal oral and palatal mucosa present Eyes General: appearance normal, both eyes and all related structures Neck Neck: Yes no lymphadenopathy and Yes supple Resp Effort & Inspection: normal respiratory effort Auscultation: clear to auscultation bilaterally Cardio Rhythm: regular rhythm Heart sounds: S1 normal heart sound present and S2 normal heart sound present Assessment and Plan Assessment & Plan (1) Hyperlipidemia: Code(s): E78.5 - Hyperlipidemia, unspecified Plan: Continue statin (2) Vertigo: Comment: Chronic Code(s): R42 - Dizziness and giddiness Plan: Continue meclizine (3) BPH (benign prostatic hyperplasia): Code(s): N40.0 - Benign prostatic hyperplasia without lower urinary tract symptoms Plan: Continue tamsulosin follow-up with urology (4) Memory loss: Code(s): R41.3 - Other amnesia Plan: Continue donepezil and Namenda (5) Obesity: Code(s): E66.9 - Obesity, unspecified Plan: Increase physical activity decrease caloric intake and weight loss discussed with the patient Orders: Orders Lipid Panel 6 Months E78.5 - Hyperlipidemia, unspecified, R42 - Dizziness and giddiness Comprehensive [place]. Panel Fast 6 Months E78.5 - Hyperlipidemia, unspecified, N40.0 - Benign prostatic hyperplasia without lower urinary tract symptoms, R42 - Dizziness and giddiness Complete Blood Count Auto Diff 6 Months E78.5 - Hyperlipidemia, unspecified, R42 - Dizziness and giddiness Hemoglobin A1c 6 Months E78.5 - Hyperlipidemia, unspecified, R42 - Dizziness and giddiness Medications: Refilled meclizine 25 mg PO BID PRN 30 tabs 0RF dizziness Coding Level of Care Code Est Pt Level 4 (71739) Diagnoses Hyperlipidemia E78.5 Vertigo R42 BPH (benign prostatic hyperplasia) N40.0 Memory loss R41.3 Obesity E66.9
== END 2023-03-27 15:19 | disposition home or self-care (01) ==
PROVIDERS: PCP Internal Medicine; Visit Provider Internal Medicine
DX: E78.5 Hyperlipidemia, unspecified (principal); R42 Dizziness and giddiness; N40.0 Benign prostatic hyperplasia without lower urinary tract symptoms; R41.3 Other amnesia; E66.9 Obesity, unspecified; Z68.36 Body mass index [BMI] 36.0-36.9, adult
CPT/HCPCS: 99214

== ENCOUNTER 2023-08-13 06:32 | Emergency (ER) | payer MEDICARE, SELFPAY ==
[2023-08-13] VITALS (7 sets, daily range): BP systolic 135–158; BP diastolic 51–66; PULSE 50–62; RESP 13–20; TEMP 36.3–36.6; O2SAT 96–98; BMI 37.0
--- NOTE | 2023-08-13 | ECG_ITS ---
Test Reason : DIZZNISS Blood Pressure : / mmHG Vent. Rate : 054 BPM Atrial Rate : 054 BPM P-R Int : 152 ms QRS Dur : 088 ms QT Int : 416 ms P-R-T Axes : 009 -18 066 degrees QTc Int : 394 ms Sinus bradycardia Nonspecific ST and T wave abnormality Abnormal ECG When compared with ECG of 12-JUL-2022 09:39, Nonspecific T wave abnormality now evident in Lateral leads Referred By: Generic ED Physician Electronically Signed By:SALEEM CLARK
--- NOTE | ~2023-08-13 | CT_ITS ---
EXAMINATION: CT HEAD WITHOUT CONTRAST CLINICAL INFORMATION: Fall COMPARISON: SUSY from 07/12/2022 TECHNIQUE: Contiguous axial imaging was performed from the skull base to vertex without intravenous administration of contrast. This CT examination was performed using dose optimization techniques as appropriate, variously including the following: *Automated exposure control *Adjustment of mA and/or kV according to patient size (this includes techniques or standardized protocols for targeted exams where dose is matched to indication/reason for exam; i.e. extremities or head) *Use of iterative reconstruction technique DLP: 825 mGy-cm FINDINGS: There is no evidence of acute intracranial hemorrhage or territorial infarction. Chronic white matter small vessel ischemic changes. Cerebral atrophy with commensurate ventricular changes. No abnormal mass effect or midline shift is seen. García to white matter differentiation is well preserved. No extra-axial fluid collections are identified. The ventricles are normal in size. There is no abnormal attenuation within the brain parenchyma. The osseous structures and soft tissues are normal. The mastoid air cells and visualized portions of the paranasal sinuses are well aerated. Atherosclerotic calcifications. CT/CT cervical spine wo IV con IMPRESSION: 1. No acute intracranial pathology. 2. Chronic white matter small vessel ischemic changes. EXAMINATION: Noncontrast CT scan of the cervical spine. INDICATION: Fall COMPARISON: None. TECHNIQUE: Helical, multidetector axial images were obtained from the occiput to the upper thorax. Coronal and sagittal reformats of the cervical spine were provided for interpretation. DLP: 564.22 mGy-cm FINDINGS: No acute fractures or dislocations of the cervical spine are seen. Slight exaggeration of the cervical lordosis. Multilevel degenerative changes. Levocurvature of the mid lumbar spine. Anatomic alignment and positioning of the vertebral bodies and posterior elements is noted. The atlantoaxial joint and craniovertebral articulations are normal without evidence of subluxation. There is no prevertebral soft tissue swelling. The thyroid gland and visualized portions of the lung apices and mediastinum are unremarkable. IMPRESSION: 1. No acute visible fracture or dislocation. 2. Slight exaggeration of the cervical lordosis. 3. Multilevel degenerative changes. 4. Levocurvature of the mid lumbar spine.
--- NOTE | ~2023-08-13 | XR_ITS ---
EXAMINATION: XR RIBS, RIGHT CLINICAL INFORMATION: Injury COMPARISON: None available. TECHNIQUE: Single view chest and 3 views of the right ribs were obtained. FINDINGS: Lungs are clear. No consolidation, pneumothorax, or pleural effusion. The cardiomediastinal silhouette and pulmonary vasculature are normal. Marked degenerative changes are seen in the right glenohumeral joint. Ribs are intact. No fractures are identified. XR/XR ribs RT min 3V w CXR1V IMPRESSION: No acute intrathoracic disease. No rib fractures are seen. Marked degenerative changes right glenohumeral joint.
--- NOTE | 2023-08-13 07:43 | PC.NURSE ---
a&ox3. pt pleasantly confused. reports hx of dementia. vss and up to date. pt presents to ED s/p fall at home. witnessed by . pt woke up in the middle of the night to go to the bathroom after he stood up/became dizzy. hit right side of rib cage on night stand. -headstrike, -loc, - thinners. 20gIV placed in the left AC - labs obtained/sent to lab. ekg performed by tech. no sob/wob noted. resp even/unlabored. bedside for support. call kohli placed within reach.
[2023-08-13 07:46] LABS: MANUAL DIFF FLAG NO
[2023-08-13 07:49] LABS: Basophils Absolute Auto 0.1 X10*3/uL (0.0-0.2); Basophils Percent Auto 0.4 % (0-2); Eosinophils Absolute Auto 0.1 X10*3/uL (0.0-0.4); Eosinophils Percent Auto 0.5 % (0-4); Hematocrit 49.3 % (42.0-52.0); Hemoglobin 16.6 g/dl (14.0-18.0); Imm Gran Abs Auto 0.06 X10*3/uL (0.00-0.03); Imm Gran Pct Auto 0.4 % (0.0-0.4); Lymphocytes Absolute Auto 1.6 X10*3/uL (1.2-4.9); Lymphocytes Percent Auto 11.6 % (20-40); Mean Corpuscular HGB Conc 33.7 g/dl (31.0-36.0); Mean Corpuscular Hemoglobin 30.2 pg (27.0-33.0); Mean Corpuscular Volume 89.8 fL (80.0-98.0); Mean Platelet Volume 8.6 fL (9.4-12.4); Monocytes Absolute Auto 0.7 X10*3/uL (0.1-1.2); Monocytes Percent Auto 5.2 % (2-11); Neutrophils Percent Auto 81.9 % (45-73); Platelet Count 176 X10*3/uL (160-400); Red Blood Count 5.49 X10*6/uL (4.60-5.80); Red Cell Distribution Width 13.2 % (11.0-16.0); White Blood Count 13.4 X10*3/uL (4.8-10.8)
--- NOTE | 2023-08-13 07:52 | ED_ITS ---
HPI - Fall General Chief Complaint: Fall Stated Complaint: fell hit night stand on right side /ribs Time Seen by Provider: 08/13/23 07:41 Source: patient and family Mode of arrival: ambulatory Limitations: no limitations History of Present Illness ED Provider: DR. Hinojosa HPI Narrative: 78-year-old male walked into the emergency department for evaluation after had a mechanical fall at 02:30. Patient patient got up trying to go to the bathroom felt dizzy fell to his right side struck his chest in the night stand complaining of right-sided chest pain with movement and taking a deep breath. 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 Patient declined any chest pain before the fall or difficulty breathing, no LOC before or after the fall patient was able to talk to his spouse with no period of LOC. Related Data Home Medications ?Medication ?Instructions ?Recorded ?Confirmed flu vacc 2020-21(65yr ml IM 02/25/20 03/27/23 up)-MF59C(PF) 60 mcg(15 mcgx4)/0.5 mL IM syringe memantine 10 mg tablet 10 mg PO BID 03/27/23 03/27/23 Previous Rx's ?Medication ?Instructions ?Recorded tamsulosin 0.4 mg capsule 0.4 mg PO DAILY #90 caps 09/22/22 donepezil 10 mg tablet 10 mg PO BEDTIME #90 tabs 10/13/22 simvastatin 40 mg tablet 40 mg PO DAILY #90 tabs 03/18/23 meclizine 25 mg tablet 25 mg PO BID PRN dizziness #30 tabs 03/27/23 oxycodone 5 mg tablet 5 mg PO Q8H PRN pain #10 tabs 08/13/23 Allergies Allergy/AdvReac Type Severity Reaction Status Date / Time No Known Allergies Allergy Verified 08/13/23 06:50 Review of Systems 2 Review of Systems: All other systems are reviewed and are negative Constitutional: Reports as per HPI and Reports no additional constitutional complaints Eyes: Reports as per HPI and Reports no additional eye complaints Reports system reviewed and no additional complaints, except as documented Cardiovascular: Reports as per HPI and Reports no additional cardiovascular complaints Respiratory: Reports as per HPI and Reports no additional respiratory complaints Gastrointestinal: Reports as per HPI and Reports no additional gastrointestinal complaints Genitourinary: Reports no additional female genitourinary complaints Musculoskeletal: Reports no additional musculoskeletal complaints Skin/Breast: Reports system reviewed and no additional complaints, except as docu Psychiatric: Reports no additional psychiatric complaints Endocrine: Reports no additional endocrine complaints Hematologic/Lymphatic: Reports no additional hematologic/lymphatic complaints Allergic/Immunologic: Reports no additional allergic/immunologic complaints Reports system reviewed and no additional complaints, except as documented and Reports Abnormal speech present [facility] Past Medical History Medical History BPH (benign prostatic hyperplasia) Cataract Obesity Memory loss Hyperlipidemia Surgical History H/O colonoscopy Family History Family History Father HTN (hypertension) Mother No problems noted. Maternal Grandfather Cancer Maternal Grandmother Lung cancer Sister No problems noted. Son No problems noted. Daughter No problems noted. Daughter No problems noted. Daughter No problems noted. Social History Social History Housing: House Alcohol intake: current Alcohol intake frequency: a few times a week Patient Tobacco Use Status: Never used Tobacco Smoked in Last 30 Days: No e-Cigarette/Vaping Use: Never Used Second Hand Smoke Exposure: No Use of substances other than those prescribed or required for medical reasons: No Advance Directives: Yes Advance Directives on File: Yes Advance Directives Date on File: 08/13/23 service: Yes Current occupational status: retired Cognitive needs: No Hearing needs: Yes Vision needs: Yes Physical Exam 2 Vital Signs: Vital Signs: Last Vital Signs Temp 97.4 F 08/13/23 08:43 Pulse 51 08/13/23 08:43 Resp 13 08/13/23 08:43 BP 158/66 H 08/13/23 08:43 Pulse Ox 96 08/13/23 08:43 O2 Del Method Room Air 08/13/23 08:43 BMI result Body Mass Index 37.0 Vital signs have been reviewed and appear to be correct. Blood pressure elevated. Heart rate normal. Respiratory rate normal. Temperature normal. Oxygen saturation normal. Appearance: Alert. Oriented X3. No acute distress. Head: Normal external exam. Normocephalic. Atraumatic. No [place] signs noted. No raccoon eyes noted Eyes: PERRLA. EOMI. Conjunctiva and sclera normal. Eyelids normal. ENT: TM's Normal. Pharynx normal. Uvula midline. Moist mucous membranes. No trismus noted. No drooling noted. No muffled voice noted. Neck: Normal inspection. Neck supple. FROM. No adenopathy. Thyroid Normal. No meningeal signs. No neck mass noted. CVS: Normal heart rate and rhythm. Heart sound normal. No murmurs noted. Pulses normal throughout. Respiratory: No respiratory distress. Painless inspiration. Breath sounds normal. No wheezes/rales/rhonchi noted. Right chest wall tenderness with no step-off, no deformity. No accessory muscle usage noted or decreased air movement noted. Abdomen: Soft and nontender. Bowel sounds normal in all 4 quadrants. No distention noted. No organomegaly noted. No visible injury noted. Back: No CVA tenderness. Full range of motion noted. Skin: Skin warm and dry. Normal skin color. Normal skin turgor. No rashes/lesions/lacerations noted. Extremities: No lower extremity edema. Extremities exhibit normal range of motion. Extremities nontender. Neuro: Oriented X 3. Cranial nerve exam: II-XII are grossly intact No motor deficit. No sensory deficit. Reflexes normal. Course Reevaluation(s) Reevaluation #1: A mechanical fall with right chest wall confusion no rib fracture. 1. Patient was educated out breathing exercise I explained to the patient the importance of persist tense of doing breathing exercises to prevent atelectasis and infection. 2. Oxycodone PRN pain. 3. Troponin is negative x2 no CP, no significant EKG abnormality. 4. Otherwise unremarkable head CT. Time: 12:09 Medications Administered Discontinued Medications Generic Name Dose Route Start Last Admin Trade Name Freq PRN Reason Stop Dose Admin Ibuprofen 600 mg 08/13/23 10:34 08/13/23 10:45 Ibuprofen 600 Mg Tablet PO 08/13/23 10:35 600 mg ONCE ONE Administration Medical Decision Making Differential Diagnosis Differential Diagnoses: The differential diagnosis associated with the presentation includes (Mechanical fall, syncope, vertigo, intracranial bleed, cervical spine injury, rib fracture, lung contusion, pleural effusion.) Admission/Observation Consideration of admission/observation: Escalation of care including admission/observation considered Lab Data MDM Lab Attestation statement: I reviewed the patient's lab results. 08/13/23 07:40 08/13/23 07:40 Labs: Lab Results 08/13/23 08/13/23 08/13/23 Range/Units 07:40 07:42 08:50 WBC 13.4 H (4.8-10.8) X10*3/uL RBC 5.49 (4.60-5.80) X10*6/uL Hgb 16.6 (14.0-18.0) g/dl Hct 49.3 (42.0-52.0) % MCV 89.8 (80.0-98.0) fL MCH 30.2 (27.0-33.0) pg MCHC 33.7 (31.0-36.0) g/dl RDW 13.2 (11.0-16.0) % Plt Count 176 (160-400) X10*3/uL MPV 8.6 L (9.4-12.4) fL Immature Gran % (Auto) 0.4 (0.0-0.4) % Neut % (Auto) 81.9 H (45-73) % Lymph % (Auto) 11.6 L (20-40) % [place] % (Auto) 5.2 (2-11) % Eos % (Auto) 0.5 (0-4) % Baso % (Auto) 0.4 (0-2) % Lymph # (Auto) 1.6 (1.2-4.9) X10*3/uL [place] # (Auto) 0.7 (0.1-1.2) X10*3/uL Eos # (Auto) 0.1 (0.0-0.4) X10*3/uL Baso # (Auto) 0.1 (0.0-0.2) X10*3/uL Abs Immat Gran (auto) 0.06 H (0.00-0.03) X10*3/uL Absolute Neuts (auto) 11.0 H (2.0-8.3) x10*3/uL Absolute Nucleated RBC 0.000 (0.0-0.012) X10*3/uL Nucleated RBC % (auto) 0.0 (0.0-0.2) /100WBC Sodium 143 (135-145) mmol/L Potassium 4.4 (3.3-5.1) mmol/L Chloride 107 (96-108) mmol/L Carbon Dioxide 21 L (22-29) mmol/L Anion Gap 19 (12-20) BUN 14 (9-16) mg/dL Creatinine 1.01 (0.5-1.4) mg/dL Estim Creat Clear Calc 78.2 Estimated GFR > 60 Random Glucose 118 H (60-115) mg/dL Calcium 9.3 (8.4-10.2) mg/dL Total Bilirubin 0.9 (0.0-1.0) mg/dL AST 16 (5-37) U/L ALT 15 (0-40) U/L Alkaline Phosphatase 72 (39-117) U/L Troponin I High Sens < 2.7 (<3.5-35.0) ng/L B-Natriuretic Peptide 60 (<100) pg/mL Total Protein 7.2 (6.5-8.0) g/dL Albumin 4.0 (3.5-5.0) g/dL Urine Color Yellow Urine Appearance Clear Urine pH 5.5 (5.0-9.0) Ur Specific [place] 1.025 (1.005-1.025) Urine Protein Negative (Neg-Trace) mg/dL Urine Glucose (UA) Negative (Negative) mg/dL Urine Ketones Negative (Negative) mg/dL Urine Blood Negative (Negative) Urine Nitrite Negative (Negative) Ur Leukocyte Esterase Negative (Negative) Urine RBC 0-2 (0-2) /HPF Urine WBC 0-5 (0-5) /HPF Ur Squamous Epith Cells 0-2 (0-2) /HPF Urine Bacteria None Seen (None Seen) Hyaline Casts 0-2 (0-2) /LPF 08/13/23 Range/Units 11:15 WBC (4.8-10.8) X10*3/uL RBC (4.60-5.80) X10*6/uL Hgb (14.0-18.0) g/dl Hct (42.0-52.0) % MCV (80.0-98.0) fL MCH (27.0-33.0) pg MCHC (31.0-36.0) g/dl RDW (11.0-16.0) % Plt Count (160-400) X10*3/uL MPV (9.4-12.4) fL Immature Gran % (Auto) (0.0-0.4) % Neut % (Auto) (45-73) % Lymph % (Auto) (20-40) % [place] % (Auto) (2-11) % Eos % (Auto) (0-4) % Baso % (Auto) (0-2) % Lymph # (Auto) (1.2-4.9) X10*3/uL [place] # (Auto) (0.1-1.2) X10*3/uL Eos # (Auto) (0.0-0.4) X10*3/uL Baso # (Auto) (0.0-0.2) X10*3/uL Abs Immat Gran (auto) (0.00-0.03) X10*3/uL Absolute Neuts (auto) (2.0-8.3) x10*3/uL Absolute Nucleated RBC (0.0-0.012) X10*3/uL Nucleated RBC % (auto) (0.0-0.2) /100WBC Sodium (135-145) mmol/L Potassium (3.3-5.1) mmol/L Chloride (96-108) mmol/L Carbon Dioxide (22-29) mmol/L Anion Gap (12-20) BUN (9-16) mg/dL Creatinine (0.5-1.4) mg/dL Estim Creat Clear Calc Estimated GFR Random Glucose (60-115) mg/dL Calcium (8.4-10.2) mg/dL Total Bilirubin (0.0-1.0) mg/dL AST (5-37) U/L ALT (0-40) U/L Alkaline Phosphatase (39-117) U/L Troponin I High Sens < 2.7 (<3.5-35.0) ng/L B-Natriuretic Peptide (<100) pg/mL Total Protein (6.5-8.0) g/dL Albumin (3.5-5.0) g/dL Urine Color Urine Appearance Urine pH (5.0-9.0) Ur Specific [place] (1.005-1.025) Urine Protein (Neg-Trace) mg/dL Urine Glucose (UA) (Negative) mg/dL Urine Ketones (Negative) mg/dL Urine Blood (Negative) Urine Nitrite (Negative) Ur Leukocyte Esterase (Negative) Urine RBC (0-2) /HPF Urine WBC (0-5) /HPF Ur Squamous Epith Cells (0-2) /HPF Urine Bacteria (None Seen) Hyaline Casts (0-2) /LPF Independent Interpretation I performed an independent interpretation of an: EKG (Sinus bradycardia at 54 beats per minutes, normal intervals, nonspecific ST-T changes.) and Plain X-Ray (Chest and right rib x-ray,No acute intrathoracic disease. No rib fractures are seen. Marked degenerative changes right glenohumeral joint. ) Radiology Impression Discussion of test interpretation with radiology: I have reviewed the radiologist's reading. Discharge Plan Discharge Clinical Impression: Contusion of right chest wall Patient Disposition: Home, Self-Care Instructions: Contusion in Adults (ED) Prescriptions: New oxycodone 5 mg tablet 5 mg PO Q8H PRN (Reason: pain) Qty: 10 0RF Rx Instructions: Partial Fill upon patient request. No Action donepezil 10 mg tablet 10 mg PO BEDTIME Qty: 90 3RF simvastatin 40 mg tablet 40 mg PO DAILY Qty: 90 3RF Fluad Quad 2020-21(65y up)(PF) 60 mcg (15 mcg x 4)/0.5 mL syringe IM tamsulosin 0.4 mg capsule 0.4 mg PO DAILY Qty: 90 2RF memantine 10 mg tablet 10 mg PO BID meclizine 25 mg tablet 25 mg PO BID PRN (Reason: dizziness) Qty: 30 0RF Referrals: Alivia Horner MD [Primary Care Provider] - Print Language: Thai
--- NOTE | 2023-08-13 07:58 | PC.NURSE ---
pt to xray at this time.
[2023-08-13 08:02] LABS: Alanine Aminotransferase 15 U/L (0-40); Alkaline Phosphatase 72 U/L (39-117); Anion Gap 19 (12-20); Aspartate Amino Transferase 16 U/L (5-37); Bilirubin Total 0.9 mg/dL (0.0-1.0); Blood Urea Nitrogen 14 mg/dL (9-16); Calcium 9.3 mg/dL (8.4-10.2); Carbon Dioxide 21 mmol/L (22-29); Chloride 107 mmol/L (96-108); Creatinine Clr Calc Pharmacy 78.2; Estimated Glomerular Filt Rate > 60; Glucose Random 118 mg/dL (60-115); Potassium 4.4 mmol/L (3.3-5.1); Sodium 143 mmol/L (135-145); Total Protein 7.2 g/dL (6.5-8.0)
[2023-08-13 08:07] LABS: B Type Natriuretic Peptide 60 pg/mL (<100)
[2023-08-13 08:10] LABS: Troponin-I High Sensitivity < 2.7 ng/L (<3.5-35.0)
[2023-08-13 09:01] LABS: Appearance Urine Clear; Color Urine Yellow; Glucose Urine UA Negative (Negative); Leukocyte Esterase Urine Negative (Negative); Nitrite Urine Negative (Negative); PH 5.5 (5.0-9.0); Specific Gravity - Urine 1.025 (1.005-1.025); Urine Blood Negative (Negative); Urine Ketones Negative (Negative); Urine Protein Negative (Neg-Trace)
[2023-08-13 09:06] LABS: Bacteria Urine None Seen (None Seen); Hyaline Casts Urine 0-2 /LPF (0-2); RBC Urine 0-2 /HPF (0-2); Squamous Epithelial Cell Urine 0-2 /HPF (0-2); WBC Urine 0-5 /HPF (0-5)
[2023-08-13] MEDS: Ibuprofen 600 MG TABLET PO (10:45)
--- NOTE | 2023-08-13 10:47 | PC.NURSE ---
pt verbalizing increase in pain. pt medicated per provider order. effectiveness pending. ice pack applied to area.
--- NOTE | 2023-08-13 11:15 | PC.NURSE ---
repeat troponin obtained/sent to lab.
[2023-08-13 11:46] LABS: Troponin-I High Sensitivity < 2.7 ng/L (<3.5-35.0)
== END 2023-08-13 12:22 | disposition home or self-care (01) ==
PROVIDERS: Emergency Provider Emergency Medicine; PCP Internal Medicine
DX: S20.211A Contusion of right front wall of thorax, initial encounter (principal); W18.30XA Fall on same level, unspecified, initial encounter; Y93.9 Activity, unspecified; Y92.9 Unspecified place or not applicable; Y99.9 Unspecified external cause status
CPT/HCPCS: 36415; 70450; 71101; 72125; 80053; 81001; 83880; 84484; 85025; 93005; 99284; 99285

== ENCOUNTER → 2023-08-13 07:32 | Outpatient (BNV) | payer MEDICARE, SELFPAY | PROVIDERS: Emergency Provider Emergency Medicine; PCP Internal Medicine; Visit Provider Internal Medicine | DX: R94.31 Abnormal electrocardiogram [ECG] [EKG] (principal) | CPT/HCPCS: 93010 ==

== ENCOUNTER 2023-09-04 06:50 | Outpatient (REF) | payer MEDICARE, SELFPAY ==
[2023-09-04 11:04] LABS: MANUAL DIFF FLAG NO
[2023-09-04 11:20] LABS: Basophils Percent Auto 0.3 % (0-2); Eosinophils Absolute Auto 0.3 X10*3/uL (0.0-0.4); Eosinophils Percent Auto 3.9 % (0-4); Hematocrit 48.4 % (42.0-52.0); Hemoglobin 15.9 g/dl (14.0-18.0); Imm Gran Abs Auto 0.03 X10*3/uL (0.00-0.03); Imm Gran Pct Auto 0.3 % (0.0-0.4); Lymphocytes Absolute Auto 2.3 X10*3/uL (1.2-4.9); Lymphocytes Percent Auto 25.7 % (20-40); Mean Corpuscular HGB Conc 32.9 g/dl (31.0-36.0); Mean Corpuscular Hemoglobin 29.7 pg (27.0-33.0); Mean Corpuscular Volume 90.3 fL (80.0-98.0); Mean Platelet Volume 8.7 fL (9.4-12.4); Monocytes Absolute Auto 0.6 X10*3/uL (0.1-1.2); Monocytes Percent Auto 6.3 % (2-11); Neutrophils Absolute Auto 5.6 x10*3/uL (2.0-8.3); Neutrophils Percent Auto 63.5 % (45-73); Platelet Count 229 X10*3/uL (160-400); Red Blood Count 5.36 X10*6/uL (4.60-5.80); Red Cell Distribution Width 13.2 % (11.0-16.0); White Blood Count 8.8 X10*3/uL (4.8-10.8)
[2023-09-04 11:54] LABS: Estimated Average Glucose 108 mg/dL; Hemoglobin A1c % 5.4 % (<6.0)
[2023-09-04 11:57] LABS: Alanine Aminotransferase 17 U/L (0-40); Albumin Level 4.2 g/dL (3.5-5.0); Alkaline Phosphatase 93 U/L (39-117); Anion Gap 12 (12-20); Aspartate Amino Transferase 13 U/L (5-37); Bilirubin Total 0.9 mg/dL (0.0-1.0); Blood Urea Nitrogen 15 mg/dL (9-16); Calcium 9.8 mg/dL (8.4-10.2); Carbon Dioxide 25 mmol/L (22-29); Chloride 109 mmol/L (96-108); Cholesterol 140 mg/dL (<200); Estimated Glomerular Filt Rate > 60; Glucose Fasting 106 mg/dL (60-99); HDL Cholesterol 48 mg/dL (>40); LDL Cholesterol Calculated 78 mg/dL (<100); Potassium 4.1 mmol/L (3.3-5.1); Sodium 142 mmol/L (135-145); Total Protein 7.4 g/dL (6.5-8.0); Triglycerides 73 mg/dL (<150)
== END 2023-09-04 06:51 | disposition home or self-care (01) ==
LOC: HO.HMGCLDS 06:50
PROVIDERS: PCP Internal Medicine; Visit Provider Internal Medicine
DX: E78.5 Hyperlipidemia, unspecified (principal); R42 Dizziness and giddiness; N40.0 Benign prostatic hyperplasia without lower urinary tract symptoms
CPT/HCPCS: 36415; 80053; 80061; 83036; 85025

== ENCOUNTER 2023-09-26 11:15 | Outpatient (AMB) | payer MEDICARE, SELFPAY ==
[2023-09-26 11:19] VITALS: BP 126/68; PULSE 52; O2SAT 97; BMI 37.1
--- NOTE | 2023-09-26 11:20 | AM.OFFVISMDC ---
Intake Vital Signs 09/26/23 11:19 09/26/23 11:31 Height 5 ft 11 in Weight 266 lb BMI 37.1 37.1 BP 126/68 Blood Pressure Location Rt brachial Position Sitting Pulse 52 Pulse Source Pulse Oximeter Pulse Oximetry (%) 97 Oxygen Delivery Method Room Air Intake Visit Reasons: SWV G0439 Allergies No Known Allergies Allergy (Verified 09/26/23 11:23) HPI SWV G0439 HPI Details Initiated the conversation about Advanced Directives. Advanced Directives help? patients prepare for current and future decisions about their medical treatment? and place of care. Discussed with patient that it is a process where a patients? current condition and prognosis are reviewed, their wishes for information? regarding their illness are elicited, and likely medical dilemmas are presented? and options discussed. The form can be amended as needed, reviewed yearly and? make changes as needed IPPE/AWV ? year old presents? for her ? Annual? Wellness Visit, initial visit.? Medical / Social History Reviewed? Past Medical History ?Yes? . ? [place]? of Care / Care Team list updated ?Yes . ? Surgical/Hospitalization? History ?Yes . ? Current Medications? (including OTC and supplements) ?Yes . ? Family History ?Yes? . ? Tobacco? Control form ?Yes . ? AUDIT-C (Alcohol use) form? ?Yes . ? Illicit drug use in Social? History ?Yes . ? Current diagnosis of? depression? ?No ? Appropriate PHQ2/PHQ9? completed ?Yes . ? Data entered by ?Medical? County Administrator and reviewed by provider ? Fall Risk ? Fall? History? Have you had any falls with? injury in the past year? ?No . ? Have you had two or more? falls in the past year? ?No . ? Fall Risk Assessment: ?No? falls in the past year . ? HRA filled out by? the patient, reviewed by Provider and scanned. ? IPPE/AWV ? Balance? Romberg? ?Yes . ? Tandem? walk ?Yes . ? Walk and? Turn ?Yes . ? Rise from? sit to stand ?Yes . ?Vision? Corrective? lens ?Yes ? Vision? screen ? Up-to-date, has an appointment [] for vision? screening and glaucoma screening ?Hearing? Whisper? test ?pass .? Initiated the conversation about Advanced Directives. Advanced Directives help? patients prepare for current and future decisions about their medical treatment? and place of care. Discussed with patient that it is a process where a patients? current condition and prognosis are reviewed, their wishes for information? regarding their illness are elicited, and likely medical dilemmas are presented? and options discussed. The form can be amended as needed, reviewed yearly and? make changes as needed Written? Plan?Completed. See Patient? Documents. [facility] Medical History BPH (benign prostatic hyperplasia) Cataract Obesity Memory loss Hyperlipidemia Surgical History H/O colonoscopy Family History Father HTN (hypertension) Mother No problems noted. Maternal Grandfather Cancer Maternal Grandmother Lung cancer Sister No problems noted. Son No problems noted. Daughter No problems noted. Daughter No problems noted. Daughter No problems noted. Social History Housing: House Alcohol intake: current Alcohol intake frequency: a few times a week Patient Tobacco Use Status: Never used Tobacco e-Cigarette/Vaping Use: Never Used Second Hand Smoke Exposure: No Advance Directives Date on File: 08/13/23 service: Yes Current occupational status: retired Cognitive needs: No Hearing needs: Yes Vision needs: Yes Questionnaire Medicare Wellness Checkup [age] What gender do you identify with?: male During the past 4 weeks, how much have you been bothered by emotional problems such as feeling anxious, depressed, irritable, sad or downhearted, and blue?: not at all During the past 4 weeks, has your physical & emotional health limited your social activities with family, friends, neighbors, or groups?: not at all During the past 4 weeks, how much bodily pain have you generally had?: very mild pain During the past 4 weeks, was someone available to help you if you needed & wanted help?: yes, as much as I wanted During the past 4 weeks, what was the hardest physical activity you could do for at least 2 minutes?: moderate Can you get to places out of walking distance without help? (For eg., can you travel alone on buses, taxis or drive your car?): Yes Can you go shopping for groceries or clothes without someone's help?: Yes Can you prepare your own meals?: Yes Can you do your housework without help?: Yes Because of any health problems, do you need the help of another person with your personal care needs such as eating, bathing, dressing or getting around the house?: No Can you handle your own money without help?: Yes During the past 4 weeks, how would you rate your health in general?: good During the past 4 weeks how have things been going for you?: pretty well Are you having difficulties driving your car?: no Do you always fasten your seat belt when you are in a car?: yes, usually During past 4 weeks, have you been bothered by the following: never: Trouble eating well?, Teeth or denture problems? and Problems using the telephone?, seldom: Sexual problems?, sometimes: Falling or dizzy when standing up and often: Tiredness or fatigue? Have you fallen 2 or more times in the past year?: Yes Are you afraid of falling?: Yes Are you a smoker?: no During the past 4 weeks, how many drinks of wine, beer, or other alcoholic beverages did you have?: 1 drink or less per week Do you exercise for about 20 minutes 3 or more times a week?: no, I usually do not exercise this much Have you been given information to help with the following?: yes: Hazards in your house that might hurt you? and yes: Keeping track of your medications? How often do you have trouble taking medicines the way you have been told to take them?: I always take medicine as prescribed How confident are you that you can control & manage most of your health problems?: somewhat confident What is your race?: White Mini Mental State Exam (MMSE) Orientation What is the (year) (season) (date) (day) (month)?: year, season, date, day and month Registration Name of 3 unrelated objects clearly and slowly, then ask patient to repeat all 3 of them. (1st repeat determines score. Make sure they can repeat all three): object 1, object 2 and object 3 Attention & Calculation (CHOOSE ONE) Spell WORLD backwards (DLROW): 2 letters Recall Ask patient to repeat the 3 items from question #3.: object 1, object 2 and object 3 Language Show patient a wristwatch & ask what it is. Repeat for pencil.: watch and pencil Ask the patient to repeat the phrase 'No ifs, ands, or buts' after you.: correct Ask the patient to 'take a piece of paper with their right hand' 'fold paper in half' 'place paper on floor': take paper in right hand, fold paper in half and place paper on floor Print the sentence 'CLOSE YOUR EYES' on a piece. If patient actually closes eyes then score.: followed written direction Give patient a blank piece of paper & ask to write a sentence. Score if it contains a noun & verb.: sentence contains subject and verb Score Score: 21 Activity of Daily Living Bathing - sponge bath, tub bath or shower: receives no assistance (gets in/out by self, if usual bathing means Dressing - getting clothes from closets & drawers, including inner/outer garments & fasteners.: gets clothes & gets completely dressed without help Toileting - going to the 'toilet room' for urine/bowel elimination & cleaning self/arranging clothes: goes to toilet room, cleans self, arranges clothes without help Transfer: moves in & out of bed and chair without help (may use support object) Continence: controls urination/bowel movements completely by self Feeding: feeds self without help Total Score: 0 Information obtained from: patient Using telephone: independent Traveling: independent Shopping: independent Preparing meals: independent Housework: independent Taking medicine: independent Managing money: independent PHQ-9 Over the last 2 weeks, how often have you been bothered by any of the following problems? 1. Little interest or pleasure in doing things: not at all 2. Feeling down, depressed, or hopeless: not at all 3. Trouble falling or staying asleep, or sleeping too much: not at all 4. Feeling tired or having little energy: several days 5. Poor appetite or overeating: not at all 6. Feeling bad about yourself - or that you are a failure or have let yourself or your family down: not at all 7. Trouble concentrating on things, such as reading the newspaper or watching television: not at all 8. Moving or speaking so slowly that other people could have noticed. Or the opposite - being so fidgety or restless that you have been moving around a lot more than usual: not at all 9. Thoughts that you would be better off or of hurting yourself in some way: not at all Total score: 1 Depression Screening Interpretation: Negative Depression Screening Done: Yes Source: Developed by Drs. Riley Valadez, Arlen Helton, Benigno Antonio and colleagues, with an educational marianna from [employer] Review of Systems Const All systems reviewed & are unremarkable except as noted in HPI and below Reports no additional complaints Eyes Reports no additional complaints ENT Reports no additional complaints Card Reports no additional complaints Resp Reports no additional complaints GI Reports no additional complaints Reports no additional complaints Musc Reports no additional complaints Physical Exam Vital Signs: Last Vital Signs Pulse 52 09/26/23 11:19 BP 126/68 09/26/23 11:19 Pulse Ox 97 09/26/23 11:19 Oxygen Delivery Method Room Air 09/26/23 11:19 BMI result Body Mass Index 37.1 Const General: no acute distress HEENT Head: Yes normal to inspection Eyes General: appearance normal, both eyes and all related structures Neck Neck: Yes supple Resp Effort & Inspection: normal respiratory effort Auscultation: clear to auscultation bilaterally Cardio Rhythm: regular rhythm Heart sounds: S1 normal heart sound present and S2 normal heart sound present GI Inspection: Yes normal to inspection Palpation (GI): Soft to palpation Percussion: Yes normal to percussion Auscultation: normal bowel sounds Extrem General: Yes no clubbing, cyanosis or edema Assessment & Plan Assessment & Plan (1) Obesity: Code(s): E66.9 - Obesity, unspecified Plan: Increase physical activity decrease caloric intake and weight loss discussed with the patient (2) Hyperlipidemia: Code(s): E78.5 - Hyperlipidemia, unspecified Plan: Continue statin (3) Memory loss: Code(s): R41.3 - Other amnesia Plan: Continue current medications, increase physical activity and social interactions recommended (4) Annual physical exam: Code(s): Z00.00 - Encounter for general adult medical examination without abnormal findings Plan: Well-balanced diet regular exercise weight loss discussed with the patient. Quality Reporting (2019) Depression/Bipolar (159/160/161/177) PHQ-9: Total score: 1 Coding Level of Care Code Medicare Subsequent (G0439) Diagnoses Obesity E66.9 Hyperlipidemia E78.5 Memory loss R41.3 Annual physical exam Z00.00 CPT Codes Advance Care Planning - Time spent: 1-15 minutes, on File ([id number]) Advance Care Planning Advance Care Planning discussion: Completed/Scanned Forms completed: Comfort care/DNR Time spent: 1-15 minutes, on File
[2023-09-26 11:31] VITALS: BMI 37.1
== END 2023-09-26 12:28 | disposition home or self-care (01) ==
PROVIDERS: PCP Internal Medicine; Visit Provider Internal Medicine
DX: Z00.00 Encounter for general adult medical examination without abnormal findings (principal); E66.9 Obesity, unspecified; Z68.37 Body mass index [BMI] 37.0-37.9, adult; E78.5 Hyperlipidemia, unspecified; R41.3 Other amnesia
CPT/HCPCS: 1123F; G0439

== ENCOUNTER 2024-10-03 09:42 | Outpatient (AMB) | payer MEDICARE, SELFPAY ==
[2024-10-03 09:48] VITALS: BP 118/72; PULSE 61; RESP 20; TEMP 36.4; O2SAT 99; BMI 36.0
--- NOTE | 2024-10-03 09:48 | A.OFFVIS_ITS ---
Intake Vital Signs 10/03/24 09:48 Height 5 ft 11 in Weight 258 lb BMI 36.0 BP 118/72 Blood Pressure Location Lt brachial Position Sitting Respiration 20 Pulse 61 Pulse Source Pulse Oximeter Temp 97.6 F Temp Source Oral Pulse Oximetry (%) 99 Oxygen Delivery Method Room Air Intake Visit Reasons: V G0439 Allergies quetiapine (From Seroquel) Allergy (Intermediate, Verified 10/03/24 10:08) Agitated Medication List - Last Reconciled 10/03/24 by Alivia Horner MD donepezil 10 mg PO BEDTIME flu vac 2019 [id number](PF) 60 mcg (15 mcg x 4)/0.5 mL mL IM meclizine 25 mg PO BID PRN memantine 10 mg PO BID simvastatin 40 mg PO DAILY tamsulosin 0.4 mg PO DAILY HPI SWV G0439 HPI Details Initiated the conversation about Advanced Directives. Advanced Directives help? patients prepare for current and future decisions about their medical treatment? and place of care. Discussed with patient that it is a process where a patients? current condition and prognosis are reviewed, their wishes for information? regarding their illness are elicited, and likely medical dilemmas are presented? and options discussed. The form can be amended as needed, reviewed yearly and? make changes as needed IPPE/AWV ? year old presents? for her ? Annual? Wellness Visit, initial visit.? Medical / Social History Reviewed? Past Medical History ?Yes? . ? [place]? of Care / Care Team list updated ?Yes . ? Surgical/Hospitalization? History ?Yes . ? Current Medications? (including OTC and supplements) ?Yes . ? Family History ?Yes? . ? Tobacco? Control form ?Yes . ? AUDIT-C (Alcohol use) form? ?Yes . ? Illicit drug use in Social? History ?Yes . ? Current diagnosis of? depression? ?No ? Appropriate PHQ2/PHQ9? completed ?Yes . ? Data entered by ?Medical? Livestock Farmworker and reviewed by provider ? Fall Risk ? Fall? History? Have you had any falls with? injury in the past year? ?No . ? Have you had two or more? falls in the past year? ?No . ? Fall Risk Assessment: ?No? falls in the past year . ? HRA filled out by? the patient, reviewed by Provider and scanned. ? IPPE/AWV ? Balance? Romberg? ?Yes . ? Tandem? walk ?Yes . ? Walk and? Turn ?Yes . ? Rise from? sit to stand ?Yes . ?Vision? Corrective? lens ?Yes ? Vision? screen ? Up-to-date, has an appointment [] for vision? screening and glaucoma screening ?Hearing? Whisper? test ?pass .? Initiated the conversation about Advanced Directives. Advanced Directives help? patients prepare for current and future decisions about their medical treatment? and place of care. Discussed with patient that it is a process where a patients? current condition and prognosis are reviewed, their wishes for information? regarding their illness are elicited, and likely medical dilemmas are presented? and options discussed. The form can be amended as needed, reviewed yearly and? make changes as needed Written? Plan?Completed. See Patient? Documents. [facility] Medical History BPH (benign prostatic hyperplasia) Cataract Obesity Memory loss Hyperlipidemia Surgical History H/O colonoscopy Family History Father HTN (hypertension) Mother No problems noted. Maternal Grandfather Cancer Maternal Grandmother Lung cancer Sister No problems noted. Son No problems noted. Daughter No problems noted. Daughter No problems noted. Daughter No problems noted. Social History Housing: House Alcohol intake: current Alcohol intake frequency: a few times a week Patient Tobacco Use Status: Never used Tobacco e-Cigarette/Vaping Use: Never Used Second Hand Smoke Exposure: No Advance Directives Date on File: 08/13/23 service: Yes Current occupational status: retired Cognitive needs: No Hearing needs: Yes Vision needs: Yes Questionnaire Medicare Wellness Checkup What is your age?: 79 or older What gender do you identify with?: male During the past 4 weeks, how much have you been bothered by emotional problems such as feeling anxious, depressed, irritable, sad or downhearted, and blue?: not at all During the past 4 weeks, has your physical & emotional health limited your social activities with family, friends, neighbors, or groups?: not at all During the past 4 weeks, how much bodily pain have you generally had?: very mild pain During the past 4 weeks, was someone available to help you if you needed & wanted help?: yes, as much as I wanted During the past 4 weeks, what was the hardest physical activity you could do for at least 2 minutes?: moderate Can you get to places out of walking distance without help? (For eg., can you travel alone on buses, taxis or drive your car?): Yes Can you go shopping for groceries or clothes without someone's help?: Yes Can you prepare your own meals?: Yes Can you do your housework without help?: Yes Because of any health problems, do you need the help of another person with your personal care needs such as eating, bathing, dressing or getting around the house?: No Can you handle your own money without help?: Yes During the past 4 weeks, how would you rate your health in general?: good During the past 4 weeks how have things been going for you?: pretty well Are you having difficulties driving your car?: no Do you always fasten your seat belt when you are in a car?: yes, usually During past 4 weeks, have you been bothered by the following: never: Trouble eating well?, Teeth or denture problems? and Problems using the telephone?, seldom: Sexual problems?, sometimes: Falling or dizzy when standing up and often: Tiredness or fatigue? Have you fallen 2 or more times in the past year?: Yes Are you afraid of falling?: Yes Are you a smoker?: no During the past 4 weeks, how many drinks of wine, beer, or other alcoholic beverages did you have?: 1 drink or less per week Do you exercise for about 20 minutes 3 or more times a week?: no, I usually do not exercise this much Have you been given information to help with the following?: yes: Hazards in your house that might hurt you? and yes: Keeping track of your medications? How often do you have trouble taking medicines the way you have been told to take them?: I always take medicine as prescribed How confident are you that you can control & manage most of your health problems?: somewhat confident What is your race?: White Mini Mental State Exam (MMSE) Orientation What is the (year) (season) (date) (day) (month)?: year, season and month Where are we (state) (county) (town or city) (hospital) (floor)?: state, county and town or city Registration Name of 3 unrelated objects clearly and slowly, then ask patient to repeat all 3 of them. (1st repeat determines score. Make sure they can repeat all three): object 1 and object 2 Attention & Calculation (CHOOSE ONE) Spell WORLD backwards (DLROW): 2 letters Recall Ask patient to repeat the 3 items from question #3.: object 1 and object 2 Language Show patient a wristwatch & ask what it is. Repeat for pencil.: watch and pencil Ask the patient to repeat the phrase 'No ifs, ands, or buts' after you.: correct Ask the patient to 'take a piece of paper with their right hand' 'fold paper in half' 'place paper on floor': take paper in right hand, fold paper in half and place paper on floor Give patient a blank piece of paper & ask to write a sentence. Score if it contains a noun & verb.: sentence contains subject and verb Score Score: 19 PHQ-9 Over the last 2 weeks, how often have you been bothered by any of the following problems? 1. Little interest or pleasure in doing things: not at all 2. Feeling down, depressed, or hopeless: not at all 3. Trouble falling or staying asleep, or sleeping too much: not at all 4. Feeling tired or having little energy: several days 5. Poor appetite or overeating: not at all 6. Feeling bad about yourself - or that you are a failure or have let yourself or your family down: not at all 7. Trouble concentrating on things, such as reading the newspaper or watching television: not at all 8. Moving or speaking so slowly that other people could have noticed. Or the opposite - being so fidgety or restless that you have been moving around a lot more than usual: not at all 9. Thoughts that you would be better off or of hurting yourself in some way: not at all Total score: 1 Depression Screening Interpretation: Negative Depression Screening Done: Yes 83582 - PHQ-9 Billing: Yes Source: Developed by Drs. Riley Valadez, Arlen Helton, Benigno Antonio and colleagues, with an educational marianna from [employer]. Review of Systems Const All systems reviewed & are unremarkable except as noted in HPI and below Eyes Reports no additional complaints ENT Reports no additional complaints Card Reports no additional complaints Resp Reports no additional complaints GI Reports no additional complaints Reports no additional complaints Physical Exam Vital Signs: Last Vital Signs Temp 97.6 F 10/03/24 09:48 Pulse 61 10/03/24 09:48 Resp 20 10/03/24 09:48 BP 118/72 10/03/24 09:48 Pulse Ox 99 10/03/24 09:48 Oxygen Delivery Method Room Air 10/03/24 09:48 BMI result Body Mass Index 36.0 Const General: no acute distress Eyes General: appearance normal, both eyes and all related structures Neck Neck: Yes supple Resp Effort & Inspection: normal respiratory effort Auscultation: clear to auscultation bilaterally Cardio Rhythm: regular rhythm Heart sounds: S1 normal heart sound present and S2 normal heart sound present GI Inspection: Yes normal to inspection Palpation (GI): Soft to palpation Percussion: Yes normal to percussion Auscultation: normal bowel sounds Extrem General: Yes no clubbing, cyanosis or edema Assessment & Plan Assessment & Plan (1) Hyperlipidemia: Code(s): E78.5 - Hyperlipidemia, unspecified Plan: Continue statin (2) Impaired memory: Comment: Continue donepezil and Namenda established with Neurology Code(s): R41.3 - Other amnesia Plan: Continue current medications (3) Annual physical exam: Code(s): Z00.00 - Encounter for general adult medical examination without abnormal findings Plan: Well-balanced diet regular physical activity discussed with the patient Orders: Orders Comprehensive [place]. Panel Fast 1 Year E78.5 - Hyperlipidemia, unspecified, R41.3 - Other amnesia, Z00.00 - Encounter for general adult medical examination without abnormal findings Lipid Panel 1 Year E78.5 - Hyperlipidemia, unspecified, R41.3 - Other amnesia, Z00.00 - Encounter for general adult medical examination without abnormal findings TSH reflex Free T4 1 Year E78.5 - Hyperlipidemia, unspecified, R41.3 - Other amnesia, Z00.00 - Encounter for general adult medical examination without abnormal findings Complete Blood Count Auto Diff 1 Year E78.5 - Hyperlipidemia, unspecified, R41.3 - Other amnesia, Z00.00 - Encounter for general adult medical examination without abnormal findings Medications: Refilled simvastatin 40 mg PO DAILY 90 tabs 3RF tamsulosin 0.4 mg PO DAILY 90 caps 3RF Quality Reporting (2019) Depression/Bipolar (159/160/161/177) PHQ-9: Total score: 1 Coding Level of Care Code Medicare Subsequent (G0439) Diagnoses Hyperlipidemia E78.5 Impaired memory R41.3 Annual physical exam Z00.00 CPT Codes Advance Care Planning - Advance Care Planning discussion: On file, no changes ([id number]) Advance Care Planning - Time spent: 1-15 minutes, on File ([id number]) Additional Codes PHQ-9 - 92408 - PHQ-9 Billing: Yes ([id number]) Advance Care Planning Advance Care Planning discussion: On file, no changes Forms completed: Health Care Proxy Time spent: 1-15 minutes, on File Did not discuss due to Cultural/Spiritual beliefs: Yes
== END 2024-10-03 10:42 | disposition home or self-care (01) ==
LOC: HO.HMCC 09:42
PROVIDERS: PCP Internal Medicine; Visit Provider Internal Medicine
DX: Z00.00 Encounter for general adult medical examination without abnormal findings (principal); E78.5 Hyperlipidemia, unspecified; R41.3 Other amnesia

== ENCOUNTER → 2024-10-03 09:42 | Outpatient (BNVA) | payer MEDICARE, SELFPAY | PROVIDERS: PCP Internal Medicine; Visit Provider Internal Medicine | DX: Z00.00 Encounter for general adult medical examination without abnormal findings (principal); E78.5 Hyperlipidemia, unspecified; R41.3 Other amnesia | CPT/HCPCS: 96127 ==

== ENCOUNTER 2025-01-22 09:21 | Outpatient (AMB) | payer MEDICARE, SELFPAY ==
[2025-01-22 09:38] VITALS: BP 104/60; PULSE 82; TEMP 37; O2SAT 98; BMI 35.4
--- NOTE | 2025-01-22 09:38 | AM.OFFWIN_ITS ---
Intake Vital Signs 01/22/25 09:38 Height 5 ft 11 in Weight 254 lb BMI 35.4 BP 104/60 Blood Pressure Location Rt brachial Position Sitting Pulse 82 Pulse Source Pulse Oximeter Temp 98.6 F Temp Source Oral Pulse Oximetry (%) 98 Oxygen Delivery Method Room Air Intake Visit Reasons: EP coughinh sneezing sore throat Intake Note: pt presents with sinus congestion, sneezing and chest congestion with coughing x2 days. negative home covid test Patient Tobacco Use Status: Never used Tobacco Allergies quetiapine (From [employer]ero[employer]ron[employer]) Allergy (Intermediate, Verified 01/22/25 09:44) Agitated Do you need a note to return to daycare/school/sports/work: No HPI HPI Comments History of Present Illness Details History - The patient is an 79 year old individu al presenting with today his a dry cough. - The cough began on Sunday night and w as initially associated with sneezing and a looser cough, but has since become dry. - There is no associated fever, ear pain , sore throat, nausea, vomiting, chest pain, or shortness of breath. - The patient has a history of Alzheimer 's disease, which may contribute to the delirium observed. - The patient has not experienced any re lief from symptoms with the use of Claritin, which was initially given for suspected allergies. - He denies jeanne pain, SOB, abd pain, n/ v/d, ear pain or sore throat. - He has no sick contacts or recent jojo el. - He has no history of asthma or COPD. Physical Exam General: Cooperative, healthy appearing, comfortable and no acute distress Orientation/consciousness: Patient oriented x3 Ears: Hearing grossly normal bilaterally, external ears normal and TM's normal bilaterally Nose: Normal external nose present, normal nares present, and no nasal discharge present. Face and sinus: Sinuses nontender to palpation. Mouth: Normal oral and palatal mucosa present and moist mucous membranes noted. Throat: Tonsils normal. Uvula is midline. Posterior oropharynx with erythema and no exudates. Neck: Normal visual inspection, full ROM. No lymphadenopathy noted. Respiratory: Clear to auscultation bilaterally. Normal respiratory effort, able to speak in complete sentences. No respiratory distress, not tachypneic, no tripod positioning and no use of accessory muscles. Cardiovascular: Regular rate and rhythm. Normal S1 and S2. No m/r/g noted. Skin: No rashes or lesions noted Patient was informed and verbally consented to the use of an ambient scribe for clinic note documentation during this visit [facility] Medical History BPH (benign prostatic hyperplasia) Cataract Obesity Memory loss Hyperlipidemia Surgical History H/O colonoscopy Family History Father HTN (hypertension) Mother No problems noted. Maternal Grandfather Cancer Maternal Grandmother Lung cancer Sister No problems noted. Son No problems noted. Daughter No problems noted. Daughter No problems noted. Daughter No problems noted. Social History Housing: House Alcohol intake: current Alcohol intake frequency: a few times a week Patient Tobacco Use Status: Never used Tobacco e-Cigarette/Vaping Use: Never Used Second Hand Smoke Exposure: No Advance Directives Date on File: 08/13/23 service: Yes Current occupational status: retired Cognitive needs: No Hearing needs: Yes Vision needs: Yes Review of Systems Const All systems reviewed & are unremarkable except as noted in HPI and below Physical Exam Vital Signs: Last Vital Signs Temp 98.6 F 01/22/25 09:38 Pulse 82 01/22/25 09:38 BP 104/60 01/22/25 09:38 Pulse Ox 98 01/22/25 09:38 Oxygen Delivery Method Room Air 01/22/25 09:38 BMI result Body Mass Index 35.4 Results Reviewed Results Reviewed: will review the xray in the office Assessment & Plan Assessment & Plan (1) Cough: Code(s): R05.9 - Cough, unspecified Qualifiers: Cough type: acute Qualified Code(s): R05.1 - Acute cough Plan Most likely URI vs pneumonia vs viral illness vs covid vs flu vs RSV plan - A chest x-ray was ordered to rule out pneumonia as a cause of the cough and delirium. - Medications including cough pills and a decongestant were prescribed to manage symptoms. - tylenol or motrin as needed - will order a resp panel as well - will call with the results - If CXR is positive then will treat with antibiotics - follow with PCP as needed Orders: Orders XR chest 2V Today R05.9 - Cough, unspecified SARS-CoV2/FLU/RSV Today R09.89 - Other specified symptoms and signs involving the circulatory and respiratory systems Medications: New cetirizine-pseudoephedrine 5-120 mg ER 1 tab PO BID 14 tabs 0RF 7 days benzonatate 100 mg PO bid-tid PRN 21 caps 0RF Cough 7 days Coding Level of Care Code Est Pt Level 4 (96966) Diagnoses Acute cough R05.1 Cough type: acute
== END 2025-01-22 10:49 | disposition home or self-care (01) ==
PROVIDERS: PCP Internal Medicine; Visit Provider Physician Assistant Medical
DX: R05.1 Acute cough (principal)

== ENCOUNTER 2025-01-22 09:21 | Outpatient (REF) | payer MEDICARE, SELFPAY ==
[2025-01-22 14:38] LABS: Resp Syncy Virus RNA Qual PCR NEGATIVE (Negative); SARS COV2 PCR INHOUSE NEGATIVE (Negative)
--- OUTSIDE RECORDS SUMMARY | 2025-01-22 15:04 | XMS_ITS ---
Author Organization Unknown ENCOUNTERS Encounter Performer Location Date Diagnosis Diagnosis Status Emergency [address] [id number] [place] Pre Admit [address] [id number] Emergency [address] [address] [id number] [place] *Note: Encounters from your own facility or health system may be excluded. Allergies, Adverse Reactions, Alerts Allergen Type Severity Identification Date Medications Name Date Quantity Days Supplied GPI Number
== END 2025-01-22 09:22 | disposition home or self-care (01) ==
LOC: HO.LNP 09:21
PROVIDERS: Physician Assistant Medical; PCP Internal Medicine
DX: Z13.89 Encounter for screening for other disorder (principal)
CPT/HCPCS: 87637; 99212

== ENCOUNTER 2025-01-22 10:30 | Outpatient (REF) | payer MEDICARE, SELFPAY ==
--- NOTE | ~2025-01-22 | XR_ITS ---
EXAMINATION: XR CHEST CLINICAL INFORMATION: R05.9 - Cough, unspecified COMPARISON: X-ray 08/13/2023 TECHNIQUE: 2 views of the chest were obtained. FINDINGS: The cardiomediastinal silhouette is within normal limits. The lungs are well expanded. Mild lower lung bronchial wall thickening There is no focal consolidation, edema, or effusion. No pneumothorax. No acute osseous abnormality. Thoracic spine spondylosis. XR/XR chest 2V IMPRESSION: Bronchial wall thickening can be seen with small airway disease. Electronically signed by: Anderson Rojas MD 01/22/2025 11:02 AM [facility]
== END 2025-01-22 10:31 | disposition home or self-care (01) ==
LOC: HO.HMGCX 10:30
PROVIDERS: PCP Internal Medicine; Visit Provider Physician Assistant Medical
DX: Z03.818 Encounter for observation for suspected exposure to other biological agents ruled out (principal); R05.9 Cough, unspecified
CPT/HCPCS: 71046; 87637; 99212

== ENCOUNTER → 2025-01-22 10:35 | Outpatient (BNV) | payer MEDICARE, SELFPAY | PROVIDERS: PCP Internal Medicine; Visit Provider Radiology Diagnostic Ultrasound | DX: R05.9 Cough, unspecified (principal) | CPT/HCPCS: 71046 ==